=== PATIENT | female | born 1950 | race Caucasian/White ===

== ENCOUNTER → 2018-01-24 12:32 | Outpatient (CLI) | payer MEDICARE, OTHER, SELFPAY ==
--- NOTE | 2018-01-24 | DI.RAD.S_ITS ---
PROCEDURE: XR KNEE RT 3V INDICATIONS: 68 year-old female with right knee pain. TECHNIQUE: 3 views of the knee were acquired. COMPARISON: None. FINDINGS: Bones: No fractures or dislocations. There is mild medial right knee joint degeneration. No suspicious bony lesions. Soft tissues: No joint effusion. There is chondrocalcinosis. IMPRESSION: Right knee CPPD deposition disease, along with mild medial knee joint degeneration. Dictated by: Wyatt Godoy M.D. on 01/24/2018 at 13:01 Approved by: Wyatt Godoy M.D. on 01/24/2018 at 13:02
== END ==
PROVIDERS: Visit Provider Internal Medicine
DX: M17.11 Unilateral primary osteoarthritis, right knee (principal); M11.261 Other chondrocalcinosis, right knee; M25.561 Pain in right knee
CPT/HCPCS: 73562

== ENCOUNTER → 2018-07-28 06:48 | Outpatient (CLI) | payer MEDICARE, OTHER, SELFPAY ==
[2018-07-28 08:37] LABS: Alanine Aminotransferase 25 IU/L (9-52); Aspartate Aminotransferase 24 IU/L (14-36); Cholesterol 184 mg/dL (140-199); HDL Cholesterol 67 mg/dL (40-60); LDL Cholesterol Calculated 100 mg/dL (<100); Triglycerides 84 mg/dL (35-150)
== END ==
PROVIDERS: Visit Provider Internal Medicine
DX: E78.5 Hyperlipidemia, unspecified (principal)
CPT/HCPCS: 36415; 80061; 84450; 84460

== ENCOUNTER → 2018-09-09 09:13 | Outpatient (CLI) | payer MEDICARE, OTHER, SELFPAY ==
--- NOTE | 2018-09-09 | DI.MG.S_ITS ---
BILATERAL DIGITAL SCREENING MAMMOGRAM 3D/2D WITH CAD: 09/09/2018 CLINICAL: Routine screening. Comparison is made to exam dated: 04/16/2016 mammogram - [facility]. The tissue of both breasts is heterogeneously dense. This may lower the sensitivity of mammography. Current study was also evaluated with a Computer Aided Detection (CAD) system. No significant masses, calcifications, or other findings are seen in either breast. There has been no significant interval change. IMPRESSION: NEGATIVE There is no mammographic evidence of malignancy. A 1 year screening mammogram is recommended. This exam was interpreted at Station ID: [id number]. NOTE: For mammograms, a report in lay terms will be sent to the patient. Approximately 15% of breast malignancies will not be visualized mammographically. In the management of a palpable breast mass, a negative mammogram must not discourage biopsy of a clinically suspicious lesion. Electronically Signed By: Ricky jane/tresa:09/09/2018 11:25:11 letter sent: Normal Exam ACR BI-RADS Category 1: Negative [id number]
--- NOTE | 2018-09-09 | DI.RAD.S_ITS ---
This blank DEXA report has been sent in error by the PACS system. The correct and complete report will be forthcoming in 1-2 days. Thank you for your patience and understanding. Dictated by: Adam Barrios M.D. on 09/09/2018 at 10:35 Approved by: Adam Barrios M.D. on 09/09/2018 at 10:36
== END ==
PROVIDERS: PCP Internal Medicine; Visit Provider Internal Medicine
DX: Z12.31 Encounter for screening mammogram for malignant neoplasm of breast (principal); M81.0 Age-related osteoporosis without current pathological fracture; Z78.0 Asymptomatic menopausal state; Z90.722 Acquired absence of ovaries, bilateral; Z87.891 Personal history of nicotine dependence
CPT/HCPCS: 77063; 77067; 77080

== ENCOUNTER 2018-09-17 12:24 | Day surgery (SDC) | payer MEDICARE, OTHER, SELFPAY ==
[2018-09-17] VITALS (8 sets, daily range): BP systolic 100–112; BP diastolic 51–66; PULSE 66–87; RESP 11–17; TEMP 36.3–36.9; O2SAT 97–100; BMI 21.0
--- NOTE | 2018-09-17 | PATH_ITS ---
[facility] Accession Number: [id number] . 01 Material submitted: . PART A: ASCENDING POLYP PART B: RECTOSIGMOID POLYP . 02 Diagnosis: A. Ascending Colon, Polyp, Biopsy: Tubular adenoma; negative for high-grade dysplasia. . B. Rectosigmoid Colon, Polyp, Biopsy: Tubular adenoma; negative for high-grade dysplasia. [facility]/09/18/2018 . 02 Electronically signed: . Love Orellana MD, Pathologist NPI- [id number] . 01 Gross description: . Received two formalin-filled containers, both labeled with the patient's name: . A. In a container labeled descending colon polyp, the specimen consists of a 0.4 cm portion of tissue, entirely submitted in cassette A. B. In a container labeled rectosigmoid polyp, the specimen consists of a 0.2 cm portion of tissue, entirely submitted in cassette B. ([id number]) /FRR . 02 Pathologist provided ICD-10: K63.5 . 02 CPT . 540354, 910187 Performed at: 01 [facility] [address] [place] [address], [place], [place] [id number] MD Ricky Garg MD Phone: [phone] Performed at: 02 [facility] [address] [place], [place] [id number] MD Abimbola Curiel MD Phone: [phone]
--- NOTE | 2018-09-17 12:31 | P.HP_ITS ---
History of Present Illness Date Patient Seen: 09/17/18 Chief complaint: [id number] SCREENING COLONOSCOPY Narrative: 68-year-old female here for colon cancer screening. Last colonoscopy more than 10 years ago. Report is not available to me Patient History Social History household members: family Smoking Status: Former smoker Family & Social History Tobacco & Substance use: Smoking Status Former smoker Meds Home Medications Medication Instructions Recorded Confirmed Type [prolia] #0 08/09/16 08/16/18 History calcium carbonate 1 tab PO #0 08/09/16 08/16/18 History calcium carbonate 400 mg PO #0 08/09/16 08/16/18 History cholecalciferol (vitamin D3) 1 tab PO QDAY #0 08/09/16 08/16/18 History [Vitamin D3] conjugated estrogens [Premarin] 1 appful VAGINAL #0 08/09/16 08/16/18 History ibuprofen 200 mg PO PRN #0 08/09/16 08/16/18 History pravastatin 20 mg PO HS #0 08/09/16 09/17/18 History sumatriptan succinate 50 mg PO PRN PRN #0 08/09/16 08/16/18 History triamcinolone acetonide 1 walter TOPICAL #0 08/09/16 08/16/18 History valacyclovir 500 mg PO #0 08/09/16 08/16/18 History venlafaxine 75 mg PO QDAY #0 08/09/16 09/17/18 History Allergies Allergy/AdvReac Type Severity Reaction Status Date / Time amoxicillin Allergy Mild Diarrhea Verified 09/17/18 13:21 ampicillin [AMPICILLIN] Allergy Mild Diarrhea Verified 09/17/18 13:21 lovastatin [LOVASTATIN] Allergy Mild joints ache Verified 09/17/18 13:21 Exam Narrative Exam Narrative: General: Patient is well developed, not in apparent distress Cardiovascular: Regular rate and rhythm, no murmurs, rubs, or gallops; no evidence of edema; no palpable abdominal aortic aneurysm Gastrointestinal: Normoactive bowel sounds, soft, nontender, nondistended, no rebound tenderness, no hepatosplenomegaly, no evidence of hernia Assessment & Plan Plan: Assessment/Plan Narrative: 68-year-old female here for average risk colon cancer screening. Prior colonoscopy report not available Regarding the procedure(s), the risks and potential complications, benefits, and alternatives (including not doing the procedure) were discussed with the patient. The risks include but are not limited to bleeding, splenic injury, infection, perforation which may require surgical intervention, missed lesions, and adverse reactions to sedative medicines. After a question and answer period , the patient agreed to proceed with the procedure(s) and gives informed consent.
[2018-09-17] MEDS: SODIUM CHLORIDE 0.9% 1,000 ML 70 ML IV (13:42)
--- NOTE | 2018-09-17 14:02 | PM.OP.ENDO ---
Operative Date/Time/Diagnoses Date of procedure: 09/17/18 Procedure Notes Procedure in detail: Surgeon: Sameer Noel MD Procedure: Colonoscopy with polypectomy Preoperative diagnosis: Average risk colon cancer screening Postoperative diagnosis: 2 colon polyp status post polypectomy; grade 1 internal hemorrhoids Medications: Conscious sedation using 4 mg IV of Midazolam and 150 mcg IV of Fentanyl Preanesthesia Assessment An H and P was performed/updated and the Px?s ASA class is 2. The procedure was discussed in detail with the patient. The potential risks and complications including infection, bleeding, missed lesions, perforation, need for surgery in case of perforation, prolonged hospital stay, and were explained. A brief question and answer period was allotted and once all questions were answered, informed consent was obtained. The patient was brought back to the procedure room and placed on standard monitoring. The patient?s vital signs were monitored continuously throughout the entire procedure. Prior to starting, a timeout was performed to confirm the patient?s identity, allergies, medications, and procedure. Procedure in detail The patient was placed in left lateral decubitus position and once adequate sedation was obtained a CLIVE was performed. The digital rectal examination did not reveal any palpable lesions however there was note of a lax anal sphincter. The tip of the colonoscope was placed in the anal canal and advanced without difficulty all the way to the cecum which was identified by the appendiceal orifice and the ileocecal valve. Careful examination of all haque of the colon was performed with irrigation of any residual stool. In the ascending colon, there was note of a 2 mm sessile polyp which was removed by means of cold Jumbo forceps. Resection and retrieval were complete with minimal bleeding. In the rectosigmoid colon, there was note of a 3 mm sessile polyp which was removed by means of cold Jumbo forceps. Resection and retrieval were complete with minimal bleeding. Retroflexion was performed in the rectum which revealed grade 1 internal hemorrhoids. The patient tolerated the procedure well and will be brought back to the recovery area to be discharged once criteria are met. The prep was judged to be good and adequate to identify polyps less than 5 mm. The withdrawal time was 13 min. The total physician intraservice time was 20 min. Complications There were no complications and estimated blood loss was minimal. Recommendations: Resume previous diet Continue outPx medications Follow up pathology results Repeat colonoscopy in 5 or 10 years depending on pathology results An emergency contact number was given to the patient for any complications related to the procedure
[2018-09-17] MEDS: fentaNYL 250 MCG/5 ML INJ IV (14:10)
[2018-09-17] MEDS: MIDAZOLAM 5 MG/5 ML VIAL IV (14:30)
--- NOTE | 2018-09-17 14:34 | PM.DS.1 ---
History of Present Illness Chief complaint: [id number] SCREENING COLONOSCOPY Narrative: 68-year-old female here for colon cancer screening. Last colonoscopy more than 10 years ago. Report is not available to me Discharge Providers Primary care physician: Debora Morrison MD Discharge provider: Sameer Noel MD Discharge Date: 09/17/18 Exam Vital Signs (past 8 hours): - 09/17/18 13:25 09/17/18 14:31 Temperature 98.5 F 97.6 F Pulse Rate 66 87 Respiratory Rate 16 14 Blood Pressure 106/66 112/55 L Pulse Oximetry 100 98 Oxygen Delivery Method Room Air Narrative Exam Narrative: General: Patient is well developed, not in apparent distress Cardiovascular: Regular rate and rhythm, no murmurs, rubs, or gallops; no evidence of edema; no palpable abdominal aortic aneurysm Gastrointestinal: Normoactive bowel sounds, soft, nontender, nondistended, no rebound tenderness, no hepatosplenomegaly, no evidence of hernia Discharge Plan Discharge Plan Patient Disposition: Home Discharge Med Rec/Prescriptions Prescriptions: Continue pravastatin 10 MG tablet 20 mg PO HS Qty: 0 RF: 0 ibuprofen 200 MG capsule 200 mg PO PRN (Reason: Pain (Scale Score 1-3)) Qty: 0 RF: 0 calcium carbonate 500 MG tablet 1 tab PO Qty: 0 RF: 0 conjugated estrogens [Premarin] 0.625 MG/GM cream 1 appful Vaginal Qty: 0 RF: 0 [prolia] Qty: 0 RF: 0 triamcinolone acetonide 0.5 % cream 1 walter Topical Qty: 0 RF: 0 sumatriptan succinate 50 MG tablet 50 mg PO PRN PRNQty: 0 RF: 0 valacyclovir 500 MG tablet 500 mg PO Qty: 0 RF: 0 venlafaxine 75 MG tablet extended release 24hr 75 mg PO QDAY Qty: 0 RF: 0 calcium carbonate 400 MG tablet,chewable 400 mg PO Qty: 0 RF: 0 cholecalciferol (vitamin D3) [Vitamin D3] 2,000 UNIT tablet 1 tab PO QDAY Qty: 0 RF: 0 Discharge Orders: Discharge (Order); Ordered 09/17/18 Ordered By: Sameer Noel Provider Discharge Instructions Diet: Diet as Tolerated Visit Report/Discharge Packet Stand Alone Forms: Surgery Discharge Discharge Data Primary Care Provider: Debora Morrison Attending Provider: Sameer Noel
== END 2018-09-17 15:28 | disposition home or self-care (01) ==
PROVIDERS: PCP Internal Medicine; Visit Provider Internal Medicine Gastroenterology
PROC: 0DJD8ZZ Inspection of Lower Intestinal Tract, Via Natural or Artificial Opening Endoscopic (ICD-10-PCS; CPT 45378; principal; 2018-09-17 14:00)
DX: Z12.11 Encounter for screening for malignant neoplasm of colon (principal); K64.0 First degree hemorrhoids; Z87.891 Personal history of nicotine dependence; K63.5 Polyp of colon
CPT/HCPCS: 45380; 88305; J2250; J3010

== ENCOUNTER → 2019-02-10 07:02 | Outpatient (CLI) | payer MEDICARE, OTHER, SELFPAY ==
[2019-02-10 08:31] LABS: Alanine Aminotransferase 17 IU/L (9-52); Aspartate Aminotransferase 28 IU/L (14-36); Cholesterol 180 mg/dL (140-199); HDL Cholesterol 65 mg/dL (40-60); LDL Cholesterol Calculated 105 mg/dL (<100); Triglycerides 52 mg/dL (35-150)
== END ==
PROVIDERS: PCP Internal Medicine; Visit Provider Internal Medicine
DX: E78.5 Hyperlipidemia, unspecified (principal)
CPT/HCPCS: 36415; 80061; 84450; 84460

== ENCOUNTER → 2019-09-21 10:04 | Outpatient (CLI) | payer MEDICARE, OTHER, SELFPAY ==
--- NOTE | 2019-09-21 | DI.RAD.S_ITS ---
PROCEDURE: XR KNEE RT 1TO2V INDICATIONS: pain in right knee TECHNIQUE: 2 views of the knee were acquired. COMPARISON: [facility], , XR KNEE RT 3V, 01/24/2018, 12:16. FINDINGS: Bones: No fractures or dislocations. No suspicious bony lesions. Mild joint space loss most pronounced in the medial compartment and not significantly changed compared to 2018. Small posterior tibial spur. Small lateral and medial osteophytes. Soft tissues: No joint effusion. No suspicious soft tissue calcifications. Chondrocalcinosis. IMPRESSION: Mild to moderate degenerative change. Chondrocalcinosis. Dictated by: Aly Rivers M.D. on 09/21/2019 at 12:50 Approved by: Aly Rivers M.D. on 09/21/2019 at 12:52
== END ==
PROVIDERS: PCP Internal Medicine; Referring Provider Internal Medicine; Visit Provider Internal Medicine
DX: M25.561 Pain in right knee (principal); M11.261 Other chondrocalcinosis, right knee; M25.761 Osteophyte, right knee
CPT/HCPCS: 73560

== ENCOUNTER 2019-11-25 21:45 | Emergency (ER) | payer MEDICARE, OTHER, SELFPAY ==
[2019-11-25 21:56] VITALS: BP 136/78; PULSE 65; RESP 98; TEMP 36.6; O2SAT 98; BMI 21.0
--- NOTE | 2019-11-25 22:02 | ED_ITS ---
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 She was pushing a yard cart. The cart jammed, the handle swung and hit her in the head. She sustained injury to the right nondenominational. There is no visual changes, dizziness or LOC. She resumed work. She continue with her day, until several hours ago she developed bilateral blurred vision. With this she had no bleeding from the nose, mouth or ears. She has no neck pain. She has no focal weakness or numbness. She is not having headache. The blurred vision happened about 1 hour prior to arrival. Her vision has improved. She has a history of eye surgery. She is worried about her implants. There are no visual field cuts. She is not anticoagulated. Related Data Home Medications Medication Instructions Recorded Confirmed [prolia] #0 08/09/16 08/16/18 calcium carbonate 1 tab PO #0 08/09/16 08/16/18 calcium carbonate 400 mg PO #0 08/09/16 08/16/18 cholecalciferol (vitamin D3) 1 tab PO QDAY #0 08/09/16 08/16/18 [Vitamin D3] conjugated estrogens [Premarin] 1 appful VAGINAL #0 08/09/16 08/16/18 ibuprofen 200 mg PO PRN #0 08/09/16 08/16/18 pravastatin 20 mg PO HS #0 08/09/16 09/17/18 sumatriptan succinate 50 mg PO PRN PRN #0 08/09/16 08/16/18 triamcinolone acetonide 1 walter TOPICAL #0 08/09/16 08/16/18 valacyclovir 500 mg PO #0 08/09/16 08/16/18 venlafaxine 75 mg PO QDAY #0 08/09/16 09/17/18 Allergies Allergy/AdvReac Type Severity Reaction Status Date / Time amoxicillin Allergy Mild Diarrhea Verified 09/17/18 13:21 ampicillin [AMPICILLIN] Allergy Mild Diarrhea Verified 09/17/18 13:21 lovastatin [LOVASTATIN] Allergy Mild joints ache Verified 09/17/18 13:21 Review of Systems Review of Systems ROS Unobtainable: All systems reviewed & are unremarkable except as noted in HPI and below Constitutional Constitutional: Denies fever(s), Denies lethargy and Denies weakness Eyes Eyes: Denies blind spots, Reports blurry vision, Reports change in vision, Denies floaters and Denies loss of vision ENT Comments: No trauma to the ears, nose or mouth. No bleeding. Cardiovascular Cardiovascular: Denies chest pain, Denies lightheadedness, Denies palpitations, Denies dyspnea and Denies orthopnea Respiratory Respiratory: Denies dyspnea Gastrointestinal Gastrointestinal: Reports nausea Neurologic Neurologic: Denies loss of vision and Denies weakness Endocrine Endocrine: Denies palpitations Patient History Medical History (Updated 11/25/19 @ 22:21 by Chuckie Templeton MD) Hyperlipidemia (Acute) Migraines (Acute) Surgical History (Updated 11/25/19 @ 22:19 by Chuckie Templeton MD) History of cataract surgery (Acute) Social History household members: family Smoking Status: Former smoker Smoking Status: Former smoker alcohol intake frequency: holidays/special occasions only Substance Use Type: does not use Exam Initial Vital Signs Initial Vital Signs: Vital Signs Temperature 97.8 F 11/25/19 21:56 Pulse Rate 65 11/25/19 21:56 Respiratory Rate 98 H 11/25/19 21:56 Blood Pressure 136/78 11/25/19 21:56 Pulse Oximetry 98 11/25/19 21:56 Const General: cooperative and well developed Nutritional Appearance: well nourished [facility] Head: normocephalic and atraumatic Ears: external ears normal and TM's normal bilaterally Nose: external nose normal and No nasal discharge Face and sinus: sinuses nontender, face symmetric, no sinus tenderness and No dry mucous membranes Mouth: oral mucosae normal and moist mucous membranes Teeth and gingiva: dentition normal Throat: tonsils normal and uvula midline Eyes General: appearance normal, both eyes and all related structures Eyelids: eyelids normal Conjunctivae: conjunctivae normal Sclera: sclerae normal Pupils: PERRL EOM: EOM intact bilaterally Other: Visual cues intact, see nursing notes. No visual field cuts. Neck Neck: full ROM, supple and No tender Course Orders Ordered: ED Orders 11/25/19 22:10 CT head/brain wo con Stat Vital Signs Vital signs: Vital Signs - 8 hr 11/25/19 21:56 11/25/19 23:32 Temperature 97.8 F Pulse Rate 65 54 L Respiratory Rate 98 H 15 Blood Pressure 136/78 Blood Pressure [Left Arm] 105/51 L Pulse Oximetry 98 97 MDM - Eye Problem Imaging Data CT scan - head: Radiologist's Impression: No intracranial abnormalities. Discharge Plan Departure Patient Disposition: Home Clinical Impression: Mild concussion Qualifiers: Encounter type: initial encounter Loss of consciousness presence/duration: without LOC Qualified Code(s): S06.0X0A - Concussion without loss of consciousness, initial encounter Instructions: Concussion Activity Restrictions/Additional Instructions: Rest at home. Contact your buckshot swage operator for phone consultation or follow-up visit. Return the ER as necessary. Prescriptions: No Action pravastatin 10 MG tablet 20 mg PO HS Qty: 0 RF: 0 ibuprofen 200 MG capsule 200 mg PO PRN (Reason: Pain (Scale Score 1-3)) Qty: 0 RF: 0 calcium carbonate 500 MG tablet 1 tab PO Qty: 0 RF: 0 conjugated estrogens [Premarin] 0.625 MG/GM cream 1 appful Vaginal Qty: 0 RF: 0 [prolia] Qty: 0 RF: 0 triamcinolone acetonide 0.5 % cream 1 walter Topical Qty: 0 RF: 0 sumatriptan succinate 50 MG tablet 50 mg PO PRN PRNQty: 0 RF: 0 valacyclovir 500 MG tablet 500 mg PO Qty: 0 RF: 0 venlafaxine 75 MG tablet extended release 24hr 75 mg PO QDAY Qty: 0 RF: 0 calcium carbonate 400 MG tablet,chewable 400 mg PO Qty: 0 RF: 0 cholecalciferol (vitamin D3) [Vitamin D3] 2,000 UNIT tablet 1 tab PO QDAY Qty: 0 RF: 0 Referrals: Debora Morrison MD [Primary Care Provider] -
--- NOTE | 2019-11-25 22:10 | DI.CT.S_ITS ---
PROCEDURE: CT HEAD/BRAIN WO CON INDICATIONS: Right yazidi injury, blurred vision TECHNIQUE: Noncontrast 4.5 mm thick angled axial sections acquired from the foramen magnum to the vertex, with coronal and sagittal reformats. For radiation dose reduction, the following was used: automated exposure control, adjustment of mA and/or kV according to patient size. COMPARISON: None. FINDINGS: Image quality: Excellent. CSF spaces: Basal cisterns are patent. No extra-axial fluid collections. Ventricles are normal in size and shape. Brain: No midline shift. No intracranial masses or hemorrhage. Zelaya-white matter interface is normal. Skull and face: Calvarium and visualized facial bones are intact, without suspicious lesions. Sinuses: Visualized sinuses and mastoids are clear. IMPRESSION: No acute intracranial abnormalities. No significant discrepancy with the night shift manager radiology preliminary report. Dictated by: Adam Barrios M.D. on 11/26/2019 at 8:01 Approved by: Adam Barrios M.D. on 11/26/2019 at 8:02
--- NOTE | 2019-11-25 22:32 | PC.NURSE ---
PT reports hit right scientologist at 1430 with wheel [place] while gardening, states at 2000 both eyes c blurry with, left eye has cleared but left eye continues to be blurry.Today patient in garden, accidentally hit right scientologist with wheel [place] at 1430, states at 1999 both eyes went blurry with, left eye has cleared but left eye continues to be blurry.
--- NOTE | 2019-11-25 22:35 | PC.NURSE ---
PT reports hit right mu-ism at 1430 with wheel [place] while gardening, states at 2000 both eyes becoming blurry. Denies headache or N/V. Not on blood thinners.
[2019-11-25 23:32] VITALS: BP 105/51; PULSE 54; RESP 15; O2SAT 97
== END 2019-11-26 00:05 | disposition home or self-care (01) ==
PROVIDERS: Emergency Provider Emergency Medicine; PCP Internal Medicine
DX: S06.0X0A Concussion without loss of consciousness, initial encounter (principal); W22.8XXA Striking against or struck by other objects, initial encounter
CPT/HCPCS: 70450; 99283; 99284

== ENCOUNTER → 2020-03-08 14:46 | Outpatient (ROUT) | payer MEDICARE, OTHER, SELFPAY ==
[2020-03-08 15:21] LABS: Cholesterol 213 mg/dL (140-199); HDL Cholesterol 54 mg/dL (40-60); LDL Cholesterol Calculated 139 mg/dL (<100); Triglycerides 99 mg/dL (35-150)
== END ==
PROVIDERS: PCP Internal Medicine; Visit Provider Internal Medicine
DX: E78.5 Hyperlipidemia, unspecified (principal)
CPT/HCPCS: 80061

== ENCOUNTER → 2020-04-18 15:27 | Outpatient (CLI) | payer MEDICARE, OTHER, SELFPAY ==
--- NOTE | 2020-04-18 | DI.MRI.S_ITS ---
PROCEDURE: MR KNEE RT WO CON INDICATIONS: Unspecified internal derangement of right knee TECHNIQUE: Noncontrast sagittal PD fast spin echo and T2 fast spin echo with fat saturation, sagittal 3-D FLASH with fat saturation; coronal T1 spin echo and PD fast spin echo with fat saturation, and axial PD fast spin echo with fat saturation through the knee. COMPARISON: None. FINDINGS: Image quality: Excellent. Menisci: There is an oblique tear involving posterior horn of medial meniscus extending to the inferior articulating surface. There is no focal lateral meniscal tear. The meniscal root ligaments appear intact. Cruciate ligaments: The anterior and posterior cruciate ligaments appear intact. Medial structures: Low-grade sprain/partial-thickness tear involving medial collateral ligament is seen.. The posterior oblique ligament, semimembranosus tendon insertions, oblique popliteal ligament, and meniscocapsular junction appear intact. Visualized portions of the pes anserinus tendons appear normal. No abnormal bursal fluid. Lateral structures: The lateral collateral ligament, long and short heads of the biceps femoris tendon appear intact. The popliteus tendon appears normal; the popliteofibular ligament appears intact. The posterosuperior and anteroinferior popliteomeniscal fascicles appear intact. The arcuate and fabellofibular ligaments appear intact, on either side of the lateral inferior geniculate artery. Iliotibial band appears normal. Anterior structures: The quadriceps and patellar tendons appear intact. Patellar alignment is normal. No femoral trochlear dysplasia or ventral trochlear prominence. No edema in the infrapatellar fat pad. Bones and cartilage: No bone marrow contusions or fractures. Mild tricompartmental osteoarthritis and low-grade chondromalacia more prominent in medial femoral tibial compartment is seen.. Joint space: There is small knee joint fluid. No Jensen's cyst. Normal appearing synovial plicae are incidentally noted. IMPRESSION: 1. Oblique tear involving posterior horn of medial meniscus extending to inferior articulating surface. No evidence of focal lateral meniscal tear. 2. Cruciate ligaments are intact. Low-grade MCL sprain/partial-thickness tear. 3. 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 No fracture or dislocation. Small amount of joint fluid. Dictated by: Mario Harris M.D. on 04/18/2020 at 16:35 Approved by: Mario Harris M.D. on 04/18/2020 at 16:37
== END ==
PROVIDERS: PCP Internal Medicine; Referring Provider Internal Medicine; Visit Provider Orthopaedic Surgery
DX: S83.241A Other tear of medial meniscus, current injury, right knee, initial encounter (principal); S83.411A Sprain of medial collateral ligament of right knee, initial encounter; M17.11 Unilateral primary osteoarthritis, right knee; M94.261 Chondromalacia, right knee
CPT/HCPCS: 73721

== ENCOUNTER 2020-08-07 08:52 | Emergency (ER) | payer MEDICARE, OTHER, SELFPAY ==
[2020-08-07 09:06] VITALS: BP 137/65; PULSE 62; RESP 14; TEMP 36.9; O2SAT 97
--- NOTE | 2020-08-07 09:15 | ED.HEATRA ---
HPI - Head Injury General Chief complaint: Head Injury Stated complaint: branch hit head yesterday afternoon, blurry vision Time Seen by Provider: 08/07/20 09:02 Source: patient Mode of arrival: Ambulatory Limitations: no limitations History of Present Illness HPI Narrative: Patient is a 70-year-old female presents with blurry vision. She was hit in the head yesterday morning around 11:00 a.m. a branch in the center of her forehead. She did not lose consciousness she is not on any anti-platelet or anti medication medication. She was not nauseated vomiting or dizzy yesterday she does not even have a headache. This morning she woke up and was looking at her computer screen with her reading glasses on when she realized she had blurry vision. It lasted for about 45 minutes was both sides and has resolved since she got to the ER. She denies any weakness numbness or tingling. She has no chest pain. She denies any photosensitivity or eye irritation no eye discharge. MD Complaint: head injury Place: home Loss of Consciousness: no Location of injury: frontal Related Data Home Medications Medication Instructions Recorded Confirmed [prolia] #0 08/09/16 08/16/18 calcium carbonate 1 tab PO #0 08/09/16 08/16/18 calcium carbonate 400 mg PO #0 08/09/16 08/16/18 cholecalciferol (vitamin D3) 1 tab PO QDAY #0 08/09/16 08/16/18 [Vitamin D3] conjugated estrogens [Premarin] 1 appful VAGINAL #0 08/09/16 08/16/18 ibuprofen 200 mg PO PRN #0 08/09/16 08/16/18 pravastatin 20 mg PO HS #0 08/09/16 09/17/18 sumatriptan succinate 50 mg PO PRN PRN #0 08/09/16 08/16/18 triamcinolone acetonide 1 walter TOPICAL #0 08/09/16 08/16/18 valacyclovir 500 mg PO #0 08/09/16 08/16/18 venlafaxine 75 mg PO QDAY #0 08/09/16 09/17/18 Allergies Allergy/AdvReac Type Severity Reaction Status Date / Time amoxicillin Allergy Mild Diarrhea Verified 08/07/20 09:10 ampicillin [AMPICILLIN] Allergy Mild Diarrhea Verified 08/07/20 09:10 lovastatin [LOVASTATIN] Allergy Mild joints ache Verified 08/07/20 09:10 Review of Systems Review of Systems Narrative: GENERAL: Denies chills, fatigue, malaise, fever, sweats, travel HEENT: Denies sinus pain, ear pain, sore throat, difficulty swallowing, neck pain RESPIRATORY: Denies dyspnea, cough, wheezing, hemoptysis, sputum. CARDIOVASCULAR: Denies chest pain, palpitations, orthopnea, edema GASTROINTESTINAL: Denies nausea, vomiting, abdominal pain, diarrhea, constipation, melena. : Denies dysuria, frequency, incontinence, hematuria, urinary retention, flank pain. MUSCULOSKELETAL: Denies weakness, joint pain, or bony pain SKIN: No rash, no erythema, no pruritus NEUROLOGIC: Denies weakness, dizziness, headache, numbness, change in speech, confusion PSYCHIATRIC: No concerning psychosocial issues. 12 point review of systems is negative except for those stated above and HPI Eyes Eyes: Reports blurry vision, Denies exophthalmos, Denies change in vision, Denies diplopia, Denies eye discharge, Denies dry eyes, Denies floaters, Denies irritation, Denies itchy eyes, Denies loss of peripheral vision, Denies loss of vision, Denies seeing flashes and Denies photophobia Neurologic Neurologic: Denies loss of vision Allergic/Immunologic Allergic/Immunologic: Denies itchy eyes Patient History Medical History Hyperlipidemia Migraines Surgical History History of cataract surgery Social History household members: family Smoking Status: Former smoker Smoking Status: Former smoker alcohol intake frequency: holidays/special occasions only Substance Use Type: does not use Exam Initial Vital Signs Initial Vital Signs: Vital Signs Temperature 98.4 F 08/07/20 09:06 Pulse Rate 62 08/07/20 09:06 Respiratory Rate 14 08/07/20 09:06 Blood Pressure 137/65 08/07/20 09:06 Pulse Oximetry 97 08/07/20 09:06 GENERAL: Well-appearing, well-nourished and in no acute distress. HEENT: Head small abrasion center of forehead just superior the nose between the eyes no depressions crepitations,EOMI, pupils reactive, no injected conjunctiva face symmetric, moist mucous membranes CARDIOVASCULAR: Regular rate and rhythm without murmurs, rubs or gallops. RESPIRATORY: Breath sounds equal bilaterally, no wheezes rales or rhonchi. ABDOMEN: Soft, nontender. Normoactive bowel sounds all 4 quadrants. No guarding or rebound. EXTREMITIES: Normal range of motion, no clubbing or edema. Neurovascularly intact NEUROLOGICAL: Alert and oriented x4.Normal gait and speech. Cranial nerves II through XII grossly intact. Good [id number], good [id number], strength equal bilaterally, no dysarthria or aphasia, sensation in tact to soft touch bilaterally, no visual changes, no facial droop SKIN: Warm, dry, no laceration, no petechiae, no rashes or lesions. Scores NIH Stroke Scale Level of Conciousness: Alert, keenly responsive Ask month/age: Answers both questions correctly. Open/close eyes, close hand: Performs both tasks correctly Best gaze horizontal: Normal Visual chaudhary: No visual loss Facial palsy: Normal symetrical movement Left arm drift: No drift for full 10 sec Right arm drift: No drift for full 10 sec Left leg drift: No drift for full 5 sec Right leg drift: No drift for full 5 sec Limb ataxia: Absent Sensory on face/arms/legs: Normal, no sensory loss Best language: No aphasia, normal Dysarthria: Normal Extinction or inattention: No abnormality Total NIH Stroke scale score: 0 Course Vital Signs Vital signs: Vital Signs - 8 hr 20/20 09:06 Temperature 98.4 F Pulse Rate 62 Respiratory Rate 14 Blood Pressure 137/65 Pulse Oximetry 97 MDM - Head Injury MDM Narrative Medical decision making narrative: At this time she has no signs or symptoms of stroke. She had some visual changes colic and a computer screen with reading glasses on which have now resolved. She has no sign or symptom of severe head injury, no risk factors. At the time I see no indication for head imaging or further workup Discharge Plan Departure Patient Disposition: Home Clinical Impression: Blurred vision, bilateral Instructions: Coping With Low Vision Activity Restrictions/Additional Instructions: *You have been diagnosed with blurry vision now resolved *What to do: At this time I do not see need for head imaging. If no signs or symptoms of stroke or severe head injury. *Continue to take medications as directed *Follow up with your primary care provider in 2-3 days *Return to ER if you should have worsening blurry vision, weakness numbness tingling persistent vomiting headache or any new, worsening or concerning symptoms Prescriptions: No Action pravastatin 10 MG tablet 20 mg PO HS Qty: 0 RF: 0 ibuprofen 200 MG capsule 200 mg PO PRN (Reason: Pain (Scale Score 1-3)) Qty: 0 RF: 0 calcium carbonate 500 MG tablet 1 tab PO Qty: 0 RF: 0 conjugated estrogens [Premarin] 0.625 MG/GM cream 1 appful Vaginal Qty: 0 RF: 0 [prolia] Qty: 0 RF: 0 triamcinolone acetonide 0.5 % cream 1 walter Topical Qty: 0 RF: 0 sumatriptan succinate 50 MG tablet 50 mg PO PRN PRNQty: 0 RF: 0 valacyclovir 500 MG tablet 500 mg PO Qty: 0 RF: 0 venlafaxine 75 MG tablet extended release 24hr 75 mg PO QDAY Qty: 0 RF: 0 calcium carbonate 400 MG tablet,chewable 400 mg PO Qty: 0 RF: 0 cholecalciferol (vitamin D3) [Vitamin D3] 2,000 UNIT tablet 1 tab PO QDAY Qty: 0 RF: 0 Referrals: Debora Morrison MD [Primary Care Provider] -
== END 2020-08-07 09:35 | disposition home or self-care (01) ==
PROVIDERS: Emergency Provider Emergency Medicine; PCP Internal Medicine
DX: H53.8 Other visual disturbances (principal); S09.90XA Unspecified injury of head, initial encounter; W22.8XXA Striking against or struck by other objects, initial encounter
CPT/HCPCS: 99281

== ENCOUNTER → 2021-01-13 18:45 | Outpatient (ROUT) | payer MEDICARE, OTHER, SELFPAY ==
[2021-01-13 19:16] LABS: Alanine Aminotransferase 13 IU/L (<35); Albumin 4.2 g/dL (3.5-5.0); Albumin Globulin Ratio 1.5 (1.0-2.8); Alkaline Phosphatase 66 U/L (38-126); Aspartate Aminotransferase 27 IU/L (14-36); BUN Creatinine Ratio 26.3 (6-22); Bilirubin Total 0.2 mg/dL (0.2-1.3); Blood Urea Nitrogen 15 mg/dL (7-17); Calcium 9.1 mg/dL (8.4-10.2); Carbon Dioxide 30 mmol/L (22-32); Chloride 103 mmol/L (98-107); Estimated Glomerular Filt Rate > 60.0 mL/min (>60); Globulin 2.8 g/dL (1.7-4.1); Glucose 80 mg/dL (80-110); HEMOLYSIS < 15 (0-50); Potassium 4.3 mmol/L (3.4-5.1); Sodium 138 mmol/L (137-145)
[2021-01-13 19:30] LABS: Vitamin D 25 Hydroxy (D3) 62.4 ng/mL (30.0-100.0)
== END ==
PROVIDERS: PCP Internal Medicine; Visit Provider Internal Medicine
DX: M81.0 Age-related osteoporosis without current pathological fracture (principal)
CPT/HCPCS: 80053; 82306

== ENCOUNTER → 2021-02-23 15:05 | Outpatient (CLI) | payer MEDICARE, OTHER, SELFPAY ==
--- NOTE | 2021-02-23 15:07 | DI.MG.S_ITS ---
BILATERAL DIGITAL SCREENING MAMMOGRAM 3D/2D WITH CAD: 02/23/2021 CLINICAL: Routine screening. Comparison is made to exams dated: 09/09/2018 mammogram - [facility] and 04/16/2016 mammogram - [facility]. The tissue of both breasts is heterogeneously dense. This may lower the sensitivity of mammography. Current study was also evaluated with a Computer Aided Detection (CAD) system. There are stable post operative findings/scarring from reduction mammoplasty in both breasts. No significant masses, calcifications, or other findings are seen in either breast. There has been no significant interval change. IMPRESSION: BENIGN There is no mammographic evidence of malignancy. A 1 year screening mammogram is recommended. This exam was interpreted at Station ID: [id number]. NOTE: For mammograms, a report in lay terms will be sent to the patient. Approximately 15% of breast malignancies will not be visualized mammographically. In the management of a palpable breast mass, a negative mammogram must not discourage biopsy of a clinically suspicious lesion. Electronically Signed By: Baljit Olivares M.D. at/:02/23/2021 16:30:25 letter sent: Normal Exam ACR BI-RADS Category 2: Benign Finding(s) 3342F
== END ==
PROVIDERS: PCP Internal Medicine; Referring Provider Internal Medicine; Visit Provider Internal Medicine
DX: Z12.31 Encounter for screening mammogram for malignant neoplasm of breast (principal); M81.0 Age-related osteoporosis without current pathological fracture; Z78.0 Asymptomatic menopausal state; Z90.722 Acquired absence of ovaries, bilateral; Z87.891 Personal history of nicotine dependence
CPT/HCPCS: 77063; 77067; 77080

== ENCOUNTER 2021-04-19 08:30 | Emergency (ER) | payer MEDICARE, OTHER, SELFPAY ==
[2021-04-19 08:43] VITALS: BP 126/59; PULSE 64; RESP 16; TEMP 36.3; O2SAT 99; BMI 21.4
--- NOTE | 2021-04-19 08:44 | ED.TRAUMA ---
HPI - Trauma General Chief Complaint: Chest Pain Stated Complaint: Left arm intermit pain/rt upper chest pain x3 days Time Seen by Provider: 04/19/21 08:43 Source: patient Mode of arrival: Ambulatory Limitations: no limitations History of Present Illness HPI narrative: This is a 71-year-old female comes emergency department complaint of left upper chest and axilla pain for the past 3 days. Patient states slowly increased in intensity. It has been intermittent with no exacerbating or alleviating factors. It does not seem to radiate anywhere. Patient notes that it just sort of hurts in that area. No lumps, bumps or bruises, no rashes or skin changes in that area. It will last seconds at a time and the longest episodes are minute at length the most. She has had some increased frequency of episodes. She denies shortness of breath, diaphoresis, no nausea or vomiting. No numbness, tingling or weakness. No swelling of her extremities. She has occasional rashes on her arms and abdomen after gardening. Patient notes that she had a little bit of right forearm discomfort as well. And last night she noted she felt dizzy for a couple minutes while lying in bed which shortly resolved. Patient has not had any additional episodes. Patient does states she gardens frequently she is unsure if she was more active if this may have caused her symptoms. She takes an antidepressant which is Lexapro, she has recently started on Ezetimibe she did not tolerate regular statin for dyslipidemia. She takes calcium and vitamin day daily. History cataracts, hysterectomy, breast reduction and bunionectomy. Patient denies any cardiac, pulmonary or embolic family history. She quit smoking tobacco in 1990, rare alcohol and no illicit. Her primary care is Debora Morrison. Related Data Home Medications Medication Instructions Recorded Confirmed [prolia] #0 08/09/16 08/16/18 calcium carbonate 400 mg calcium 400 mg PO #0 08/09/16 08/16/18 (1,000 mg) chewable tablet calcium carbonate 500 mg calcium 1 tab PO #0 08/09/16 08/16/18 (1,250 mg) tablet cholecalciferol (vitamin D3) 50 1 tab PO QDAY #0 08/09/16 08/16/18 mcg (2,000 unit) tablet (Vitamin D3) conjugated estrogens 0.625 mg/gram 1 appful VAGINAL #0 08/09/16 08/16/18 vaginal cream (Premarin) ibuprofen 200 mg capsule 200 mg PO PRN #0 08/09/16 08/16/18 pravastatin 10 mg tablet 20 mg PO HS #0 08/09/16 09/17/18 sumatriptan succinate 50 mg tablet 50 mg PO PRN PRN #0 08/09/16 08/16/18 triamcinolone acetonide 0.5 % 1 walter TOPICAL #0 08/09/16 08/16/18 topical cream valacyclovir 500 mg tablet 500 mg PO #0 08/09/16 08/16/18 venlafaxine 75 mg tablet,extended 75 mg PO QDAY #0 08/09/16 09/17/18 release 24 hr Allergies Allergy/AdvReac Type Severity Reaction Status Date / Time amoxicillin Allergy Mild Diarrhea Verified 08/07/20 09:10 ampicillin [AMPICILLIN] Allergy Mild Diarrhea Verified 08/07/20 09:10 lovastatin [LOVASTATIN] Allergy Mild joints ache Verified 08/07/20 09:10 Review of Systems Review of Systems ROS Unobtainable: All systems reviewed & are unremarkable except as noted in HPI and below Patient History Medical History Hyperlipidemia Migraines Surgical History History of cataract surgery Social History household members: family Smoking Status: Former smoker Smoking Status: Former smoker alcohol intake frequency: holidays/special occasions only Substance Use Type: does not use Exam Narrative Exam Narrative: GENERAL: Alert and oriented x three, female in mild distress. HEENT: Head normocephalic, atraumatic, EOMI, pupils reactive, face symmetric, moist mucous membranes NECK: Supple, full range of motion CARDIOVASCULAR: Regular rate and rhythm without murmurs, rubs or gallops. Patient has a mild tenderness with palpation of the left upper chest and into the axilla. No axillary lymphadenopathy is appreciated. No nodules, lumps or skin changes are appreciated. RESPIRATORY: Breath sounds equal bilaterally, no wheezes rales or rhonchi. No tachypnea accessory muscle use. Speaks in full sentences. ABDOMEN: Soft, nontender. Normoactive bowel sounds all 4 quadrants. No guarding or rebound, rigidity, no mass : No CVA tenderness EXTREMITIES: Normal range of motion, no clubbing or edema. 2+ pulses bilateral upper extremities. Neurovascularly intact. 5/5 muscle strength in bilateral upper extremities. NEUROLOGICAL: Cranial nerves II through XII grossly intact. Moving all extremities SKIN: Warm, dry, no petechiae, no rashes or lesions. Initial Vital Signs Initial Vital Signs: Vital Signs Temperature 97.4 F L 04/19/21 08:43 Pulse Rate 64 04/19/21 08:43 Respiratory Rate 16 04/19/21 08:43 Blood Pressure 126/59 L 04/19/21 08:43 Pulse Oximetry 99 04/19/21 08:43 Scores HEART Score Heart Score history: Slightly Suspicious Heart Score EKG: Normal Heart Score Age: > or = 65 years old Heart Score risk factors: 1-2 risk factors Heart Score troponin: < or = to normal limit Heart Score Total: 3 Course Orders Ordered: Discontinued Medications Aspirin (Aspirin 81 Mg Chew Tab) 324 mg PO NOW ONE Stop: 04/19/21 08:58 Last Admin: 04/19/21 09:10 Dose: 324 mg Documented by: HARJIT Vital Signs Vital signs: Vital Signs - 8 hr 04/19/21 08:43 Temperature 97.4 F L Pulse Rate 64 Respiratory Rate 16 Blood Pressure 126/59 L Pulse Oximetry 99 MDM - Trauma Lab Data Result diagrams: 04/19/21 09:20 04/19/21 09:20 Labs: Lab Results 04/19/21 04/19/21 Range/Units 09:20 09:20 WBC 5.5 (4.5-11.0) X10^3/uL RBC 4.75 (4.0-5.2) X10^6/uL Hgb 13.9 (12.0-16.0) g/dL Hct 41.5 (36-46) % MCV 87.5 (80-100) fL MCH 29.3 (26-34) PG MCHC 33.5 (30-36) % RDW 13.8 (11.6-14.8) % Plt Count 147 L (150-400) X10^3/uL Neut % (Auto) 42.9 L (50-75) % Lymph % (Auto) 43.9 H (25-40) % [place] % (Auto) 9.4 (3-14) % Eos % (Auto) 2.6 (2-4) % Baso % (Auto) 1.2 (0-2) % Neut # (Auto) 2400 (2796-6981) /uL Lymph # (Auto) 2400 (9790-8819) /uL [place] # (Auto) 500 (0-900) /uL Eos # (Auto) 100 (0-450) /uL Baso # (Auto) 100 (0-100) /uL Sodium 137 (137-145) mmol/L Potassium 4.1 (3.4-5.1) mmol/L Chloride 105 (98-107) mmol/L Carbon Dioxide 27 (22-32) mmol/L BUN 15 (7-17) mg/dL Creatinine 0.53 (0.52-1.04) mg/dL Estimated GFR > 60.0 (>60) mL/min BUN/Creatinine Ratio 28.3 H (6-22) Glucose 92 (80-110) mg/dL Calcium 9.5 (8.4-10.2) mg/dL Total Bilirubin 0.6 (0.2-1.3) mg/dL AST 30 (14-36) IU/L ALT 18 (<35) IU/L Alkaline Phosphatase 65 (38-126) U/L Total Creatine Kinase 72 (30-135) U/L CK-MB (CK-2) TNP CK-MB (CK-2) Rel Index TNP Troponin I < 0.012 (0.01-0.034) ng/mL Total Protein 7.2 (6.3-8.2) g/dL Albumin 4.4 (3.5-5.0) g/dL Globulin 2.8 (1.7-4.1) g/dL Albumin/Globulin Ratio 1.6 (1.0-2.8) Lipase 298 (23-300) U/L Imaging Data Chest x-ray: Radiologist's Impression: Launch?[address] [address] XRay Report Signed Patient: Sophia Dixon MR#: [id number] : 1950 Acct:[id number] Age/Sex: 71 / F Date of Service: 04/19/21 Loc: ED Accession Number: [id number] ?? Procedure: XR chest 1V Ordering Provider: Veda Lewis D.O. PROCEDURE:? XR CHEST 1V ? INDICATIONS:? chest pain ? TECHNIQUE:? One view of the chest was acquired.? ? COMPARISON:? None. ? FINDINGS:? ? Surgical changes and devices:? None.? ? Lungs and pleura:? Lungs are clear.? No pleural effusions or pneumothorax.? ? Mediastinum:? Mediastinal contours appear normal.? Heart size is normal.? ? Bones and chest wall:? No suspicious bony lesions.? Overlying soft tissues appear unremarkable.? Mild deformity of the posterior right 7th rib is most likely related to a prior healed fracture. ? IMPRESSION:? No acute cardiopulmonary abnormality. ? ? Dictated by: Eduardo Baltazar M.D. on 04/19/2021 at 9:18 ? ? Approved by: Eduardo Baltazar M.D. on 04/19/2021 at 9:20? ECG Data Attestation: I personally reviewed and interpreted this ECG as follows: Prior ECG tracings: not available for review Interpretation: Sinus bradycardia rate of 50 9p are 144 QRS a 68 QTC 409. No acute ST changes appreciated. No priors for comparison. MDM Narrative Medical decision making narrative: Female comes in with left-sided chest pain which is intermittent. My suspicion for ACS or cardiac causes lower. Patient's chest x-ray EKG and labs show decreased platelets but otherwise normal. Discussed with patient plan for watchful waiting. Patient can continue her home medications. She is asked to follow up with her primary care physician and we did discuss strict return precautions. Patient is aware of her decreased platelets at 147 an asked to share with her physician. Her lab value was written on her discharge paperwork. Discharge Plan Departure Patient Disposition: Home Clinical Impression: Atypical chest pain Instructions: DI for Atypical Chest Pain Activity Restrictions/Additional Instructions: Follow-up with your physician for recheck in the next week. You may try Tylenol and/or ibuprofen for pain as needed. Please return for new or worsening symptoms, increasing chest pain, shortness of breath, numbness, tingling or weakness, rashes or skin changes, lightheadedness or passing out, persistent vomiting or other new or concerning symptoms. Prescriptions: No Action pravastatin 10 MG tablet 20 mg PO HS Qty: 0 RF: 0 ibuprofen 200 MG capsule 200 mg PO PRN (Reason: Pain (Scale Score 1-3)) Qty: 0 RF: 0 calcium carbonate 500 MG tablet 1 tab PO Qty: 0 RF: 0 conjugated estrogens [Premarin] 0.625 MG/GM cream 1 appful Vaginal Qty: 0 RF: 0 [prolia] Qty: 0 RF: 0 triamcinolone acetonide 0.5 % cream 1 walter Topical Qty: 0 RF: 0 sumatriptan succinate 50 MG tablet 50 mg PO PRN PRNQty: 0 RF: 0 valacyclovir 500 MG tablet 500 mg PO Qty: 0 RF: 0 venlafaxine 75 MG tablet extended release 24hr 75 mg PO QDAY Qty: 0 RF: 0 calcium carbonate 400 MG tablet,chewable 400 mg PO Qty: 0 RF: 0 cholecalciferol (vitamin D3) [Vitamin D3] 2,000 UNIT tablet 1 tab PO QDAY Qty: 0 RF: 0 Referrals: Debora Morrison MD [Primary Care Provider] -
--- NOTE | 2021-04-19 08:57 | DI.RAD.S_ITS ---
PROCEDURE: XR CHEST 1V INDICATIONS: chest pain TECHNIQUE: One view of the chest was acquired. COMPARISON: None. FINDINGS: Surgical changes and devices: None. Lungs and pleura: Lungs are clear. No pleural effusions or pneumothorax. Mediastinum: Mediastinal contours appear normal. Heart size is normal. Bones and chest wall: No suspicious bony lesions. Overlying soft tissues appear unremarkable. Mild deformity of the posterior right 7th rib is most likely related to a prior healed fracture. IMPRESSION: No acute cardiopulmonary abnormality. Dictated by: Eduardo Baltazar M.D. on 04/19/2021 at 9:18 Approved by: Eduardo Baltazar M.D. on 04/19/2021 at 9:20
[2021-04-19] MEDS: ASPIRIN 81 MG CHEW TAB 324 MG PO (09:10)
[2021-04-19 09:15] VITALS: PULSE 61; RESP 13; O2SAT 98
[2021-04-19 09:16] VITALS: BP 121/64; PULSE 60; RESP 18; O2SAT 98
[2021-04-19 09:27] LABS: Add Manual Diff / Slide Review NO; Basophils Absolute Auto 100 /uL (0-100); Basophils Percent Auto 1.2 % (0-2); Eosinophils Absolute Auto 100 /uL (0-450); Eosinophils Percent Auto 2.6 % (2-4); Hematocrit 41.5 % (36-46); Hemoglobin 13.9 g/dL (12.0-16.0); Lymphocytes Absolute Auto 2400 /uL (1100-4500); Lymphocytes Percent Auto 43.9 % (25-40); Mean Corpuscular HGB Conc 33.5 % (30-36); Mean Corpuscular Hemoglobin 29.3 PG (26-34); Mean Corpuscular Volume 87.5 fL (80-100); Monocytes Absolute Auto 500 /uL (0-900); Monocytes Percent Auto 9.4 % (3-14); Neutrophils Absolute Auto 2400 /uL (1500-7000); Neutrophils Percent Auto 42.9 % (50-75); Platelet Count 147 X10^3/uL (150-400); Red Blood Cell Count 4.75 X10^6/uL (4.0-5.2); Red Cell Distribution Width 13.8 % (11.6-14.8); White Blood Cell Count 5.5 X10^3/uL (4.5-11.0)
[2021-04-19 09:30] VITALS: BP 128/70; PULSE 58; RESP 19; O2SAT 99
[2021-04-19 09:39] LABS: Alanine Aminotransferase 18 IU/L (<35); Albumin 4.4 g/dL (3.5-5.0); Albumin Globulin Ratio 1.6 (1.0-2.8); Alkaline Phosphatase 65 U/L (38-126); Aspartate Aminotransferase 30 IU/L (14-36); BUN Creatinine Ratio 28.3 (6-22); Bilirubin Total 0.6 mg/dL (0.2-1.3); Blood Urea Nitrogen 15 mg/dL (7-17); Calcium 9.5 mg/dL (8.4-10.2); Carbon Dioxide 27 mmol/L (22-32); Chloride 105 mmol/L (98-107); Creatine Kinase 72 U/L (30-135); Estimated Glomerular Filt Rate > 60.0 mL/min (>60); Globulin 2.8 g/dL (1.7-4.1); Glucose 92 mg/dL (80-110); HEMOLYSIS < 15 (0-50); Lipase 298 U/L (23-300); Potassium 4.1 mmol/L (3.4-5.1); Sodium 137 mmol/L (137-145); Total Protein 7.2 g/dL (6.3-8.2)
[2021-04-19 09:50] LABS: Troponin I < 0.012 ng/mL (0.01-0.034)
[2021-04-19 10:00] VITALS: BP 135/66; PULSE 57; RESP 16; O2SAT 97
== END 2021-04-19 10:33 | disposition home or self-care (01) ==
PROVIDERS: Emergency Provider Emergency Medicine; PCP Internal Medicine
DX: R07.89 Other chest pain (principal)
CPT/HCPCS: 36415; 71045; 80053; 82550; 83690; 84484; 85025; 93005; 99284

== ENCOUNTER → 2022-08-21 14:39 | Outpatient (CLI) | payer MEDICARE, OTHER, SELFPAY | PROVIDERS: PCP Internal Medicine; Referring Provider Internal Medicine; Visit Provider Internal Medicine | DX: M81.0 Age-related osteoporosis without current pathological fracture (principal); Z79.83 Long term (current) use of bisphosphonates; Z90.710 Acquired absence of both cervix and uterus | CPT/HCPCS: 77080 ==

== ENCOUNTER → 2022-09-18 16:55 | Outpatient (CLI) | payer MEDICARE, OTHER, SELFPAY ==
--- NOTE | 2022-09-18 16:57 | DI.RAD.S_ITS ---
PROCEDURE: XR CHEST 2V INDICATIONS: CHEST PAIN TECHNIQUE: 2 views of the chest were acquired. COMPARISON: [facility], CR, XR CHEST 1V, 04/19/2021, 9:01. FINDINGS: Surgical changes and devices: None. Lungs and pleura: Lungs are clear. No pleural effusions or pneumothorax. Mediastinum: Mediastinal contours are normal. Heart size is normal. Bones and chest wall: No suspicious bony abnormalities. Soft tissues appear unremarkable. IMPRESSION: No acute cardiopulmonary process demonstrated radiographically. Dictated by: Bossman Hernandez M.D. on 09/19/2022 at 11:39 Approved by: Bossman Hernandez M.D. on 09/19/2022 at 11:39
== END ==
PROVIDERS: PCP Internal Medicine; Referring Provider Internal Medicine; Visit Provider Internal Medicine
DX: R07.9 Chest pain, unspecified (principal)
CPT/HCPCS: 71046

== ENCOUNTER → 2022-10-15 08:40 | Outpatient (CLI) | payer MEDICARE, OTHER, SELFPAY ==
--- NOTE | 2022-10-15 23:46 | DI.NM.S_ITS ---
DATE OF SERVICE: 10/15/2022 PROCEDURE: Exercise treadmill stress and rest myocardial perfusion imaging with gating to assess ejection fraction and regional wall motion. ORDERING PROVIDER: Dr. Debora Morrison. INDICATIONS: The patient is a 72-year-old female with recurrent atypical chest discomfort. CARDIAC STRESS: The patient was able to exercise for 10 minutes on a standard John protocol suggesting exceptional exercise capacity with an MARCO of -69%, achieving 9.9 METS. She had a normal hemodynamic response, achieving a maximum heart rate of 136 BPM (91% of her predicted maximum). She had no chest discomfort or other anginal symptoms. Her resting ECG is normal and there are no significant ST-segment shifts or arrhythmias with stress. At 9 minutes and 22 seconds of exercise at a heart rate of 131 BPM, 24.8 millicuries of technetium-99m Myoview was injected and she was imaged 10 minutes later using a gated SPECT acquisition protocol. Earlier in the day, while at rest, she had been injected with 11.7 millicuries of technetium-99m Myoview and was imaged 20 minutes later, again, using a gated SPECT acquisition protocol. FINDINGS: 1. Raw data: There is fairly good myocardial tracer uptake. There are slight breast shadows and some subdiaphragmatic tracer activity noted. The lluvia/heart ratio is normal at 0.35 with a normal TID ratio of 0.80. 2. Quantitated gated SPECT: Post-stress ejection fraction is estimated at 84% without any focal wall motion abnormality. The resting ejection fraction is estimated at 87% with a normal resting end-diastolic volume of 62 mL. 3. Myocardial perfusion imaging: Post-stress supine images show a fairly normal myocardial perfusion pattern without any concerning perfusion defects, supported by a normal, homogeneous perfusion pattern on the prone images. The resting images show an identical perfusion pattern without any areas of improvement. IMPRESSION: 1. Normal myocardial perfusion study. 2. No evidence for myocardial ischemia or previous myocardial infarction. 3. Normal left ventricular size with normal systolic function and no focal abnormality. 4. Exceptional exercise capacity without angina or ECG evidence of ischemia. Sophia Dixon - JOY/senthil/julian doc#: [id number]/job#: [id number] dd: 10/15/2022 16:53:00 dt: 10/15/2022 23:32:00 DICTATING MD/COPIES TO: Chuckie Kramer MD; Debora Morrison M.D. COPIES MNE: COREY;
== END ==
PROVIDERS: PCP Internal Medicine; Referring Provider Internal Medicine; Visit Provider Internal Medicine
DX: R07.89 Other chest pain (principal)
CPT/HCPCS: 78452; 93017; A9502

== ENCOUNTER → 2023-01-08 13:44 | Outpatient (CLI) | payer MEDICARE, OTHER, SELFPAY ==
--- NOTE | 2023-01-08 | DI.MG.S_ITS ---
BILATERAL DIGITAL SCREENING MAMMOGRAM 3D/2D WITH CAD: 01/08/2023 CLINICAL: Routine screening. Comparison is made to exams dated: 02/23/2021 mammogram, 09/09/2018 mammogram - [facility], and 04/16/2016 mammogram - [facility]. Both breasts are heterogeneously dense, which may obscure small masses (category c / 51-75% glandular tissue). Current study was also evaluated with a Computer Aided Detection (CAD) system. There are benign post operative findings in both breasts. No significant masses, calcifications, or other findings are seen in either breast. There has been no significant interval change. IMPRESSION: BENIGN There is no mammographic evidence of malignancy. A 1 year screening mammogram is recommended. Based on the Tyrer Cuzick model (a risk assessment model) the patient's lifetime risk is 5.0% and her 10 year risk is 3.2%. According to the ACR, ACS, and NCCN guidelines, an annual breast MRI exam along with mammogram is recommended if the patient's lifetime risk is 20% or greater. This exam was interpreted at Station ID: [id number]. NOTE: For mammograms, a report in lay terms will be sent to the patient. Approximately 15% of breast malignancies will not be visualized mammographically. In the management of a palpable breast mass, a negative mammogram must not discourage biopsy of a clinically suspicious lesion. Electronically Signed By: Aly carolina/tresa:01/08/2023 15:44:10 letter sent: Normal Exam ACR BI-RADS Category 2: Benign Finding(s) 3342F
== END ==
PROVIDERS: PCP Internal Medicine; Referring Provider Internal Medicine; Visit Provider Internal Medicine
DX: Z12.31 Encounter for screening mammogram for malignant neoplasm of breast (principal)
CPT/HCPCS: 77063; 77067

== ENCOUNTER 2023-09-16 07:50 | Day surgery (SDC) | payer MEDICARE, OTHER, SELFPAY ==
[2023-09-16] MEDS: LACTATED RINGERS 1,000 ML 120 ML IV (08:40)
[2023-09-16 08:41] VITALS: BP 111/68; PULSE 80; RESP 16; TEMP 36.4; O2SAT 99
--- NOTE | 2023-09-16 09:08 | P.HP_ITS ---
History of Present Illness History of Present Illness Date Patient Seen: 09/16/23 Time Patient Seen: 09:08 Chief complaint: Dx Colonoscopy Narrative: Personal history of colon polyps. Here for colonoscopy. [facility] Medical History Migraines Hyperlipidemia Surgical History History of cataract surgery Social History household members: family Smoking Status: Former smoker alcohol intake: current Meds Home Medications and Allergies Home Medications Medication Instructions Recorded Confirmed Type [prolia] ##0 08/09/16 08/16/18 History calcium carbonate 400 mg calcium 400 mg PO ##0 08/09/16 08/16/18 History (1,000 mg) chewable tablet calcium carbonate 500 mg calcium 1 tab PO ##0 08/09/16 08/16/18 History (1,250 mg) tablet cholecalciferol (vitamin D3) 50 1 tab PO QDAY ##0 08/09/16 08/16/18 History mcg (2,000 unit) tablet (Vitamin D3) pravastatin 10 mg tablet 20 mg PO HS ##0 08/09/16 09/16/23 History sumatriptan succinate 50 mg tablet 50 mg PO PRN PRN Headache ##0 08/09/16 09/16/23 History triamcinolone acetonide 0.5 % 1 walter topical PRN PRN Rash ##0 08/09/16 09/16/23 History topical cream valacyclovir 500 mg tablet 500 mg PO PRN PRN Rash ##0 08/09/16 09/16/23 History venlafaxine 75 mg tablet,extended 75 mg PO QDAY ##0 08/09/16 09/16/23 History release 24 hr escitalopram oxalate 20 mg tablet 20 mg PO DAILY 09/16/23 09/16/23 History Allergies Allergy/AdvReac Type Severity Reaction Status Date / Time amoxicillin Allergy Mild Diarrhea Verified 09/16/23 08:27 ampicillin [AMPICILLIN] Allergy Mild Diarrhea Verified 09/16/23 08:27 lovastatin [LOVASTATIN] Allergy Mild joints ache Verified 09/16/23 08:27 Review of Systems Review of Systems ROS: Yes All systems reviewed with the patient and are negative except as otherwise documented Exam Vital Signs (past 8 hours): - 09/16/23 08:41 Temperature 97.6 F Pulse Rate 80 Respiratory Rate 16 Blood Pressure 111/68 Pulse Oximetry 99 Oxygen Delivery Method Room Air Oxygen Delivery Method Room Air Const General: cooperative HENMT Head: normal to inspection Eyes General: appearance normal, both eyes and all related structures Neck Neck: normal visual inspection Chest Chest: normal inspection of the chest Resp Effort & Inspection: normal respiratory effort Cardio Rate: regular rate GI Inspection: normal to inspection Skin General: no rashes or lesions noted Neuro General: patient alert and patient awake Extrem General: normal to inspection and no pedal edema Psych Appearance: grossly normal Assessment & Plan Assessment & Plan narrative: 73-year-old female with a personal history of adenomatous colon polyps. Colonoscopy is pursued today.
--- NOTE | 2023-09-16 09:09 | PM.PREOP ---
Pre-operative Note Interval Note History & Physical reviewed/Exam performed by Physician: Yes Changes to H&P: No ASA Class (for procedural sedation): II
--- NOTE | 2023-09-16 09:30 | PM.OP.COLON ---
Operative Date/Time/Diagnoses Date of procedure: 09/16/23 Time of procedure: 09:30 Pre-op diagnosis: Personal history of colon polyps Post-op diagnosis: same Procedure & Clinicians Study performed: Colonoscopy Same procedure as scheduled: Yes Indications: Personal history of colon polyps Surgeon: Jorge Maria Procedure Notes SCOAP/Timeout: Done Procedure in detail: After the risks and benefits were explained, written and verbal informed consent was obtained. The patient was brought into the procedure room and placed into the left lateral decubitus position. Please see anesthesia note for sedation details. Digital rectal examination was accomplished. The scope was introduced into the patient and advanced under direct visualization to the cecum as identified by the appendiceal orifice and ileocecal valve. The scope was slowly withdrawn to carefully examine the mucosa for any defects or lesions. Comprehensive imaging was accomplished throughout the rectum including the dentate line. The colon was decompressed, the scope was then removed from the patient who tolerated the procedure well. Pediatric colonoscope Bowel prep adequate Scope withdrawal time: 9 minutes Sedation minutes: 15 Specimen(s): none sent Complications: none Impression: No significant polyps mass lesions identified throughout. The terminal ileum was interrogated and appeared to be within normal limits. There was some mild inflammation approaching the dentate line consistent with changes from intermittent rectal prolapse. Grade 1 internal hemorrhoids were noted. Endoscopic diagnosis 1. Grade 1 internal hemorrhoids 2. Otherwise visually unremarkable colonoscopy Post-procedure Plan for aftercare: Repeat colonoscopy 7 years considering personal history of adenomatous colon polyps. Disposition: PACU
[2023-09-16 09:32] VITALS: BP 101/59; PULSE 75; RESP 16; TEMP 36.2; O2SAT 99
[2023-09-16 09:36] VITALS: BP 105/58; PULSE 78; RESP 16; O2SAT 99
[2023-09-16 09:41] VITALS: BP 144/60; PULSE 74; RESP 16; TEMP 36.6; O2SAT 98
== END 2023-09-16 09:52 | disposition home or self-care (01) ==
PROVIDERS: PCP Internal Medicine; Referring Provider Internal Medicine Gastroenterology; Visit Provider Internal Medicine Gastroenterology
PROC: 0DJD8ZZ Inspection of Lower Intestinal Tract, Via Natural or Artificial Opening Endoscopic (ICD-10-PCS; CPT 45378; principal; 2023-09-16 09:00)
DX: Z12.11 Encounter for screening for malignant neoplasm of colon (principal); Z86.010 Personal history of colon polyps; K64.0 First degree hemorrhoids; E78.5 Hyperlipidemia, unspecified; Z87.891 Personal history of nicotine dependence
CPT/HCPCS: G0105; J2704

== ENCOUNTER → 2024-01-16 08:05 | Outpatient (CLI) | payer MEDICARE, OTHER, SELFPAY ==
--- NOTE | 2024-01-16 08:09 | DI.MG.S_ITS ---
BILATERAL DIGITAL SCREENING MAMMOGRAM 3D/2D WITH CAD: 01/16/2024 CLINICAL: Routine screening. Comparison is made to exams dated: 01/08/2023 mammogram, 02/23/2021 mammogram, and 09/09/2018 mammogram - [facility]. Both breasts are heterogeneously dense, which may obscure small masses (category c / 51-75% glandular tissue). Current study was also evaluated with a Computer Aided Detection (CAD) system. There are benign post operative findings in both breasts. No significant masses, calcifications, or other findings are seen in either breast. There has been no significant interval change. IMPRESSION: BENIGN There is no mammographic evidence of malignancy. A 1 year screening mammogram is recommended. Based on the Tyrer Cuzick model (a risk assessment model) the patient's lifetime risk is 4.7% and her 10 year risk is 3.2%. According to the ACR, ACS, and NCCN guidelines, an annual breast MRI exam along with mammogram is recommended if the patient's lifetime risk is 20% or greater. This exam was interpreted at Station ID: [id number]. NOTE: For mammograms, a report in lay terms will be sent to the patient. Approximately 15% of breast malignancies will not be visualized mammographically. In the management of a palpable breast mass, a negative mammogram must not discourage biopsy of a clinically suspicious lesion. Electronically Signed By: Saniya diaz/tresa:01/16/2024 10:22:10 letter sent: Normal Exam ACR BI-RADS Category 2: Benign Finding(s) [id number]
== END ==
PROVIDERS: PCP Internal Medicine; Referring Provider Internal Medicine; Visit Provider Internal Medicine
DX: Z12.31 Encounter for screening mammogram for malignant neoplasm of breast (principal); R92.333 Mammographic heterogeneous density, bilateral breasts
CPT/HCPCS: 77063; 77067

== ENCOUNTER 2024-03-03 08:54 | Emergency (ER) | payer MEDICARE, OTHER, SELFPAY ==
[2024-03-03] VITALS (14 sets, daily range): BP systolic 107–133; BP diastolic 55–63; PULSE 54–61; RESP 15–22; TEMP 36.4; O2SAT 95–99; BMI 21.9
--- NOTE | 2024-03-03 08:59 | ED.GENADULT ---
HPI - General Adult General Chief complaint: Chest Pain Stated complaint: chest/back pain L side Time Seen by Provider: 03/03/24 08:55 Source: patient, RN notes reviewed and old records reviewed Mode of arrival: Ambulatory Limitations: no limitations History of Present Illness HPI narrative: 74-year-old female with history of dyslipidemia, depression, migraines who presents with complaint of left anterior and posterior chest pain for the past 15 hours. Patient states she has had similar symptoms in the past but for very brief periods of time that then resolved. She states this episode has been persistent without any resolution. She does note a little bit of increased discomfort with movement of her right upper extremity when she brings it across her chest. She does not recall any injury no traumas. She states she has had little bit of patchy rash on her torso but not across her back. Patient states she has had a stress test which her primary care physician ordered in the past year which was negative. She describes it as being in the left upper chest and wrapping around to the left upper thoracic back. Denies any fevers, no cold cough or congestion symptoms. No shortness of breath. No nausea or vomiting. No diaphoresis. No other GI or urinary symptoms. No new swelling in extremities. Patient states prior episodes have never lasted this long. States this episode started while she was at rest. She did go for a walk did not make her symptoms worse. She presents today because it has not resolved. She has not taken anything [id number]. States home medications include an antidepressant, cholesterol medication and PRN migraine medication. No aspirin or other anticoagulants. Prior surgeries include bunionectomy, breast reduction, hysterectomy. No prior cardiac interventions. Has had a cardiac stress test in the past year which she reports it is negative. States she has allergy to ampicillin and adverse reaction to a statin. Tobacco, alcohol or recreational drugs. States no cardiac, pulmonary master family history. No long distance travel. No estrogen. Related Data Home Medications Medication Instructions Recorded Confirmed [prolia] ##0 08/09/16 08/16/18 calcium carbonate 1 tab PO ##0 08/09/16 08/16/18 calcium carbonate 400 mg PO ##0 08/09/16 08/16/18 cholecalciferol (vitamin D3) 50 1 tab PO QDAY ##0 08/09/16 08/16/18 mcg (2,000 unit) tablet (Vitamin D3) pravastatin 10 mg tablet 20 mg PO HS ##0 08/09/16 09/16/23 sumatriptan succinate 50 mg tablet 50 mg PO PRN PRN Headache ##0 08/09/16 09/16/23 triamcinolone acetonide 0.5 % 1 walter topical PRN PRN Rash ##0 08/09/16 09/16/23 topical cream valacyclovir 500 mg tablet 500 mg PO PRN PRN Rash ##0 08/09/16 09/16/23 venlafaxine 75 mg tablet,extended 75 mg PO QDAY ##0 08/09/16 09/16/23 release 24 hr escitalopram oxalate 20 mg tablet 20 mg PO DAILY 09/16/23 09/16/23 Allergies Allergy/AdvReac Type Severity Reaction Status Date / Time amoxicillin Allergy Mild Diarrhea Verified 09/16/23 08:27 ampicillin [AMPICILLIN] Allergy Mild Diarrhea Verified 09/16/23 08:27 lovastatin [LOVASTATIN] Allergy Mild joints ache Verified 09/16/23 08:27 Review of Systems Review of Systems ROS Unobtainable: All systems reviewed & are unremarkable except as noted in HPI and below Patient History Medical History Migraines Hyperlipidemia Surgical History History of cataract surgery Social History household members: family Smoking Status: Former smoker alcohol intake: current Smoking Status: Former smoker alcohol intake frequency: holidays/special occasions only Substance Use Type: does not use Exam Narrative Exam Narrative: GENERAL: Alert and oriented x three, well-appearing female in mild distress. HEENT: Head normocephalic, atraumatic, EOMI, pupils reactive, face symmetric, moist mucous membranes NECK: Supple, full range of motion CARDIOVASCULAR: Regular rate and rhythm without murmurs, rubs or gallops. No JVD. No edema. No obvious rash, erythema or vesicles. RESPIRATORY: Breath sounds equal bilaterally, no wheezes rales or rhonchi. ABDOMEN: Soft, nontender. Normoactive bowel sounds all 4 quadrants. No guarding or rebound, rigidity, no mass : No CVA tenderness EXTREMITIES: Normal range of motion, no clubbing or edema. Neurovascularly intact. No edema bilateral upper extremities. Normal upper extremity strength. NEUROLOGICAL: Cranial nerves II through XII grossly intact. Moving all extremities SKIN: Warm, dry, no petechiae, no rashes or lesions. Initial Vital Signs Initial Vital Signs: Vital Signs Temperature 97.6 F 03/03/24 08:59 Pulse Rate 61 03/03/24 08:59 Respiratory Rate 18 03/03/24 08:59 Blood Pressure 130/58 L 03/03/24 08:59 Pulse Oximetry 97 03/03/24 08:59 Oxygen Delivery Method Room Air 03/03/24 08:59 Scores HEART Score Heart Score history: Slightly Suspicious Heart Score EKG: Normal Heart Score Age: > or = 65 years old Heart Score risk factors: 1-2 risk factors Course Orders Ordered: ED Orders 03/03/24 10:14 US abdomen limited Stat 03/03/24 12:21 MRCP [MR abdomen wo/w con] Stat Discontinued Medications Aspirin (Aspirin 81 Mg Chew Tab) 324 mg PO NOW ONE Stop: 03/03/24 09:02 Last Admin: 03/03/24 09:21 Dose: 324 mg Documented By: DARREN Vital Signs Vital signs: Vital Signs - 8 hr 03/03/24 11:01 03/03/24 11:02 03/03/24 11:02 Pulse Rate 56 L 54 L Respiratory Rate 21 Blood Pressure 118/56 L Pulse Oximetry 98 98 03/03/24 11:30 03/03/24 11:30 03/03/24 12:00 Pulse Rate 58 L Respiratory Rate 20 Blood Pressure 133/63 122/60 Pulse Oximetry 97 03/03/24 12:00 03/03/24 14:28 03/03/24 14:29 Pulse Rate 55 L 57 L 55 L Respiratory Rate 15 Blood Pressure Pulse Oximetry 99 95 97 03/03/24 14:29 03/03/24 14:30 03/03/24 14:31 Pulse Rate 56 L Respiratory Rate Blood Pressure 107/59 L 108/58 L Pulse Oximetry 97 03/03/24 14:31 03/03/24 15:00 03/03/24 15:00 Pulse Rate 58 L 54 L Respiratory Rate Blood Pressure 115/55 L Pulse Oximetry 96 98 Medical Decision Making Lab Data 03/03/24 09:10 03/03/24 09:10 Labs: Lab Results 03/03/24 Range/Units 09:10 WBC 5.4 (4.5-11.0) X10^3/uL RBC 4.54 (4.0-5.2) X10^6/uL Hgb 13.5 (12.0-16.0) g/dL Hct 40.4 (36-46) % MCV 88.9 (80-100) fL MCH 29.7 (26-34) PG MCHC 33.4 (30-36) % RDW 14.1 (11.6-14.8) % Plt Count 162 (150-400) X10^3/uL Neut % (Auto) 49.0 L (50-75) % Lymph % (Auto) 37.4 (25-40) % Hardin % (Auto) 9.0 (3-14) % Eos % (Auto) 3.3 (2-4) % Baso % (Auto) 1.3 (0-2) % Neut # (Auto) 2700 (5886-1199) /uL Lymph # (Auto) 2000 (9156-0800) /uL Hardin # (Auto) 500 (0-900) /uL Eos # (Auto) 200 (0-450) /uL Baso # (Auto) 100 (0-100) /uL PT 10.8 (9.4-12.5) SECONDS INR 0.9 (0.9-1.3) APTT 38 H (25.1-36.5) SECONDS Sodium 138 (137-145) mmol/L Potassium 4.0 (3.4-5.1) mmol/L Chloride 108 H (98-107) mmol/L Carbon Dioxide 27 (22-32) mmol/L BUN 14 (7-17) mg/dL Creatinine 0.57 (0.52-1.04) mg/dL Estimated GFR > 60 (>60) mL/min BUN/Creatinine Ratio 24.6 H (6-22) Glucose 95 (80-110) mg/dL Calcium 8.6 (8.4-10.2) mg/dL Magnesium 2.2 (1.6-2.3) mg/dL Total Bilirubin 0.8 (0.2-1.3) mg/dL AST 24 (14-36) IU/L ALT 16 (<35) IU/L Alkaline Phosphatase 61 (38-126) U/L Total Creatine Kinase 82 (30-135) U/L Troponin I < 0.012 (0.01-0.034) ng/mL NT-Pro-B Natriuret Pep 41 (<125) pg/mL Total Protein 7.3 (6.3-8.2) g/dL Albumin 4.4 (3.5-5.0) g/dL Globulin 2.9 (1.7-4.1) g/dL Albumin/Globulin Ratio 1.5 (1.0-2.8) Lipase 1053 H (23-300) U/L Point of Care Testing Glucose POC 99 Point of care testing: Point of Care Testing Glucose POC 99 Imaging Data US - abdomen: Radiologist's Impression: [address] [address] Ultrasound Report Signed Patient: Sophia Dixon MR#: [id number] : 1950 Acct:[id number] Age/Sex: 74 / F Date of Service: 03/03/24 Loc: ED Accession Number: [id number] Procedure: US abdomen limited Ordering Provider: Veda Lewis D.O. PROCEDURE: US ABDOMEN LIMITED INDICATIONS: left chest pain, elevated lipase TECHNIQUE: Real-time scanning was performed of the abdominal and retroperitoneal organs, with image documentation. COMPARISON: None. FINDINGS: Liver: Liver is normal in size and homogeneous in echotexture. Gallbladder: Gallbladder sludge No wall thickening. No pericholecystic edema. Negative sonographic Anderson's sign. Biliary ducts: Intrahepatic bile ducts are non-dilated. Extrahepatic bile duct caliber measures 4 mm. Normal is 6-7 mm or less in diameter, or 10 mm or less post-cholecystectomy. Pancreas: Pancreatic ductal dilation, measuring 5 mm. Miscellaneous: No free abdominal fluid. IMPRESSION: Pancreatic ductal dilation, measuring 5 mm. In the setting of elevated lipase, obstruction is a consideration. Consider cross-sectional imaging for confirmation. Gallbladder sludge. No common bile duct dilation. Dictated by: Fadi Stevens M.D. on 03/03/2024 at 10:44 Approved by: Fadi Stevens M.D. on 03/03/2024 at 10:46 Chest x-ray: Radiologist's Impression: Sophia Dixon??74??F??1950 ? Allergy/Adv: amoxicillin, ampicillin, lovastatin (More??) Close Abdomen Ultrasound (Signed) Fadi Stevens - 03/03/24 Chest X-Ray (Signed) Robert Santos - 03/03/24 Mammogram Screening (Signed) Saniya Flores - 01/16/24 Mammogram Screening (Signed) Call,Aly - 01/08/23 Radiology Report (Cancelled) Chuckie Kramer - 10/15/22 Myocardial Perfusion Scan Nuc Med (Signed) Chuckie Kramer - 10/15/22 Chest X-Ray (Signed) Bossman Hernandez - 09/18/22 Bone Densitometry 08/21/22 Chest X-Ray (Signed) Eduardo Baltazar - 04/19/21 Mammogram Screening (Signed) Baljit Olivares - 02/23/21 Bone Densitometry 02/23/21 Knee MRI (Signed) Mario Harris - 04/18/[address] (Signed) Caroline Barrios - 11/25/19 Knee X-Ray (Signed) Call,Aly - 09/21/19 Telemetry Strips 09/17/18 Mammogram Screening (Signed) Ricky Walton - 09/09/18 Bone Densitometry (Signed) Caroline Barrios - 09/09/18 Knee X-Ray (Signed) Wyatt Godoy - 01/24/18 [place] [address] XRay Report Signed Patient: Sophia Dixon MR#: [id number] : 1950 Acct:[id number] Age/Sex: 74 / F Date of Service: 03/03/24 Loc: ED Accession Number: [id number] Procedure: XR chest 1V Ordering Provider: Veda Lewis D.O. PROCEDURE: XR CHEST 1V INDICATIONS: chest pain TECHNIQUE: One view of the chest was acquired. COMPARISON: [facility], , XR CHEST 2V, 09/18/2022, 18:02. FINDINGS: Surgical changes and devices: None. Lungs and pleura: Lungs are clear. No pleural effusions or pneumothorax. Mediastinum: Mediastinal contours appear normal. Heart size is normal. Bones and chest wall: No suspicious bony lesions. Overlying soft tissues appear unremarkable. IMPRESSION: No acute cardiopulmonary abnormality is seen. Dictated by: Robert Santos M.D. on 03/03/2024 at 10:12 Approved by: Robert Santos M.D. on 03/03/2024 at 10:14 MRCP: Radiologist's Impression: Close Abdomen MRI (Signed) Saniya Flores - 03/03/24 Abdomen Ultrasound (Signed) Fadi Stevens - 03/03/24 Chest X-Ray (Signed) Robert Santos - 03/03/24 Mammogram Screening (Signed) Saniya Flores - 01/16/24 Mammogram Screening (Signed) Call,Aly - 01/08/23 Radiology Report (Cancelled) Chuckie Kramer - 10/15/22 Myocardial Perfusion Scan Nuc Med (Signed) Chuckie Kramer - 10/15/22 Chest X-Ray (Signed) Bossman Hernandez - 09/18/22 Bone Densitometry 08/21/22 Chest X-Ray (Signed) Eduardo Baltazar - 04/19/21 Mammogram Screening (Signed) Baljit Olivraes - 02/23/21 Bone Densitometry 02/23/21 Knee MRI (Signed) Mario Harris - 04/18/[address] (Signed) Caroline Barrios - 11/25/19 Knee X-Ray (Signed) Aly Rivers - 09/21/19 Telemetry Strips 09/17/18 Mammogram Screening (Signed) Ricky Walton - 09/09/18 Bone Densitometry (Signed) Caroline Barrios - 09/09/18 Knee X-Ray (Signed) Wyatt Godoy - 01/24/18 [place] [address] Magnetic Resonance Report Signed Patient: Sophia Dixon MR#: [id number] : 1950 Acct:[id number] Age/Sex: 74 / F Date of Service: 03/03/24 Loc: ED Accession Number: [id number] Procedure: MR abdomen wo/w con Ordering Provider: Veda Lewis D.O. PROCEDURE: MR ABDOMEN WO/W CON INDICATIONS: pancreatic ductal dilation, elevated lipase TECHNIQUE: Coronal HASTE, axial 2D FLASH in- and [id number]; axial breath-hold T2 FSE with fat saturation from the hepatic dome to the iliac crests. Oblique coronal thin-slice and radial thick slab HASTE through the biliary system. Dynamic axial VIBE during administration of contrast. Post-contrast coronal VIBE or 2D FLASH with fat saturation from the hepatic dome to the iliac crests. Optional diffusion weighted imaging and ADC may be performed. COMPARISON: None. FINDINGS: Image quality: Diagnostic. Gallbladder: No stones or wall thickening. Biliary ducts: No intrahepatic biliary dilatation. The common hepatic duct is normal at 0.6 cm. Common bile duct is normal caliber. It tapers at the ampulla and there are no intrinsic filling defects. Pancreas: The pancreatic duct is dilated to a maximal diameter of 0.5 cm in the head. The contour is smooth and there is slight tapering in the tail. The pancreas appears slightly enlarged, and there may be trace interstitial edema but no significant peripancreatic fluid. There is homogeneous enhancement without mass. OTHER: Lung bases: No pleural or pericardial effusion. Liver: No solid mass. Spleen: Size is within normal limits. Adrenal Glands: No adrenal nodules. Kidneys and Ureters: No hydronephrosis. No solid mass. No complex renal cystic lesion which requires follow up. Stomach and Bowel: Stomach and visible bowel loops are within normal limits. Peritoneum: No abnormal intraperitoneal fluid. No free air. Ventral Wall: No hernia. Abdominal Nodes: No retroperitoneal or mesenteric adenopathy by size criteria. Vessels: Aorta and inferior vena cava are normal in size. Bones: No aggressive osseous abnormality. IMPRESSION: Mild, smooth pancreatic ductal dilatation with slight pancreatic enlargement and questionable interstitial edema. Consider mild or early pancreatitis. No biliary dilatation or cholelithiasis. Dictated by: Saniya Flores M.D. on 03/03/2024 at 15:05 Approved by: Saniya Flores M.D. on 03/03/2024 at 15:13 ECG Data Attestation: I personally reviewed and interpreted this ECG as follows: Prior ECG tracings: available for review Interpretation: Sinus bradycardia rate of 57 TX 152 QRS is 66 QTC of 422. No acute ST elevation or depression noted. Patient has prior from 04/19/2021 appears similar. MDM Narrative Medical decision making narrative: 74-year-old female risk factors include dyslipidemia who presents with complaint of left-sided chest pain were wrapped around to the thoracic area in somewhat worse with movement of her upper extremity. Patient states has been persistent for over 12 hours with no resolution. No rash or skin changes consistent with shingles. Has had brief episodes in the past and had a stress test which he reports as negative in the past year. Labs normal CBC with low neutrophils, INR 0.9, chemistries chloride 108 otherwise normal renal function electrolytes patient's troponins less than 0.012 being greater than 12 hours without EKG changes do not feel this needs to be repeated. Patient's lipase is elevated at 1053. We will order abdominal ultrasound EKG shows no acute ST elevation depression, no dynamic changes from prior EKG from 2020 Chest x-ray, on prelim shows no acute change. Formal report shows no acute change. Abdominal ultrasound shows pancreas ductal dilation measuring 5 mm in the setting of elevated lipase obstructions consider considered CT imaging for confirmation gallbladder sludge no common bile duct dilation. Patient case discussed with Dr. Jnenings, would prefer MR over CT to evaluate for pancreatic ductal dilation. He would recommend MR preferentially. Spoke with patient, she is comfortable with plan, she does not have any epigastric pain states it is really on the left side of her chest but towards her back. Discussed findings thus far she was agreeable with plan for MR. MRCP shows no obstructive process findings seem most consistent with mild early pancreatitis. Discussed with patient findings, she states rare alcohol use none recently. No scorpion bite, she states she does have some dyslipidemia but states she has been told her labs which are checked fairly regularly has been appropriate. Plan for patient to follow up outpatient, repeat lipase in the next several days if her symptoms have not totally resolved, clear liquid diet and advance as tolerated. Discussed return precautions. Patient feels comfortable with this plan she has not had any vomiting or difficulty with eating or drinking. She states pain is pretty well controlled defers anything stronger than Tylenol or ibuprofen for pain management. Discharge Plan Departure Patient Disposition: Home Clinical Impression: Pancreatitis Instructions: Acute Pancreatitis Activity Restrictions/Additional Instructions: Follow-up for recheck in the next 48 hours with your physician if your symptoms have not completely resolved you should have recheck of your lipase are pancreatic enzyme. Your lipase today was 1053, and your MRCP showed some mild pancreatic ductal dilation but no obstructive process, no mass there was some mild pancreatic edema most consistent with mild or early pancreatitis. Start with a clear or soft diet, if symptoms have resolved you can start to advance your diet. You can take Tylenol up to a 1000 mg every 6 hours as needed for pain and/or ibuprofen up to 600 mg every 6 hours as needed for pain. Please return for new or worsening abdominal or chest pain, vomiting, fevers, black or bloody stools or other new or concerning changes. Prescriptions: No Action pravastatin 10 MG tablet 20 mg PO HS Qty: 0 calcium carbonate 500 MG tablet 1 tab PO Qty: 0 [prolia] Qty: 0 triamcinolone acetonide 0.5 % cream 1 walter Topical PRN PRN (Reason: Rash) Qty: 0 sumatriptan succinate 50 MG tablet 50 mg PO PRN PRN (Reason: Headache) Qty: 0 valacyclovir 500 MG tablet 500 mg PO PRN PRN (Reason: Rash) Qty: 0 venlafaxine 75 MG tablet extended release 24hr 75 mg PO QDAY Qty: 0 calcium carbonate 400 MG tablet,chewable 400 mg PO Qty: 0 cholecalciferol (vitamin D3) [Vitamin D3] 2,000 UNIT tablet 1 tab PO QDAY Qty: 0 escitalopram oxalate 20 mg tablet 20 mg PO DAILY Referrals: Debora Morrison MD [Primary Care Provider] - Stand Alone Forms: Patient Portal/API
--- NOTE | 2024-03-03 09:04 | EKG_ITS ---
[address] [address] [address] [address] Test Date: 2024-03-03 Pat Name: Sophia Dixon Department: Room: Gender: Female [employer]: DARREN : 1950 Requested By: Order Number: [id number] Reading MD: Weston Turner MD Measurements Intervals [place] Rate: 57 P: 20 [place]: 152 QRS: 9 QRSD: 66 T: 24 QT: 434 QTc: 422 Interpretive Statements Sinus bradycardia Low voltage QRS Electronically Signed On 03-03-2024 9:28:23 PDT by Weston Turner MD
[2024-03-03 09:17] LABS: Add Manual Diff / Slide Review NO; Basophils Absolute Auto 100 /uL (0-100); Basophils Percent Auto 1.3 % (0-2); Eosinophils Absolute Auto 200 /uL (0-450); Eosinophils Percent Auto 3.3 % (2-4); Hematocrit 40.4 % (36-46); Hemoglobin 13.5 g/dL (12.0-16.0); Lymphocytes Absolute Auto 2000 /uL (1100-4500); Lymphocytes Percent Auto 37.4 % (25-40); Mean Corpuscular HGB Conc 33.4 % (30-36); Mean Corpuscular Hemoglobin 29.7 PG (26-34); Mean Corpuscular Volume 88.9 fL (80-100); Monocytes Absolute Auto 500 /uL (0-900); Neutrophils Absolute Auto 2700 /uL (1500-7000); Platelet Count 162 X10^3/uL (150-400); Red Blood Cell Count 4.54 X10^6/uL (4.0-5.2); Red Cell Distribution Width 14.1 % (11.6-14.8); White Blood Cell Count 5.4 X10^3/uL (4.5-11.0)
[2024-03-03] MEDS: ASPIRIN 81 MG CHEW TAB 324 MG PO (09:21)
[2024-03-03 09:25] LABS: INR 0.9 (0.9-1.3); Prothrombin Time 10.8 SECONDS (9.4-12.5)
[2024-03-03 09:27] LABS: PTT Partial Thromboplastin Tim 38 SECONDS (25.1-36.5)
[2024-03-03 09:28] LABS: Alanine Aminotransferase 16 IU/L (<35); Albumin 4.4 g/dL (3.5-5.0); Albumin Globulin Ratio 1.5 (1.0-2.8); Alkaline Phosphatase 61 U/L (38-126); Aspartate Aminotransferase 24 IU/L (14-36); BUN Creatinine Ratio 24.6 (6-22); Bilirubin Total 0.8 mg/dL (0.2-1.3); Blood Urea Nitrogen 14 mg/dL (7-17); Calcium 8.6 mg/dL (8.4-10.2); Carbon Dioxide 27 mmol/L (22-32); Chloride 108 mmol/L (98-107); Creatine Kinase 82 U/L (30-135); Estimated Glomerular Filt Rate > 60 mL/min (>60); Globulin 2.9 g/dL (1.7-4.1); Glucose 95 mg/dL (80-110); HEMOLYSIS < 15 (0-50); Lipase 1053 U/L (23-300); Magnesium 2.2 mg/dL (1.6-2.3); Sodium 138 mmol/L (137-145); Total Protein 7.3 g/dL (6.3-8.2)
[2024-03-03 09:39] LABS: NT-proBNP (BNP-Adult 18+) 41 pg/mL (<125); Troponin I < 0.012 ng/mL (0.01-0.034)
--- NOTE | 2024-03-03 10:14 | DI.US.S_ITS ---
PROCEDURE: US ABDOMEN LIMITED INDICATIONS: left chest pain, elevated lipase TECHNIQUE: Real-time scanning was performed of the abdominal and retroperitoneal organs, with image documentation. COMPARISON: None. FINDINGS: Liver: Liver is normal in size and homogeneous in echotexture. Gallbladder: Gallbladder sludge No wall thickening. No pericholecystic edema. Negative sonographic Anderson's sign. Biliary ducts: Intrahepatic bile ducts are non-dilated. Extrahepatic bile duct caliber measures 4 mm. Normal is 6-7 mm or less in diameter, or 10 mm or less post-cholecystectomy. Pancreas: Pancreatic ductal dilation, measuring 5 mm. Miscellaneous: No free abdominal fluid. IMPRESSION: Pancreatic ductal dilation, measuring 5 mm. In the setting of elevated lipase, obstruction is a consideration. Consider cross-sectional imaging for confirmation. Gallbladder sludge. No common bile duct dilation. Dictated by: Fadi Stevens M.D. on 03/03/2024 at 10:44 Approved by: Fadi Stevens M.D. on 03/03/2024 at 10:46
--- NOTE | 2024-03-03 12:21 | DI.MRI.S_ITS ---
PROCEDURE: MR ABDOMEN WO/W CON INDICATIONS: pancreatic ductal dilation, elevated lipase TECHNIQUE: Coronal HASTE, axial 2D FLASH in- and [id number]; axial breath-hold T2 FSE with fat saturation from the hepatic dome to the iliac crests. Oblique coronal thin-slice and radial thick slab HASTE through the biliary system. Dynamic axial VIBE during administration of contrast. Post-contrast coronal VIBE or 2D FLASH with fat saturation from the hepatic dome to the iliac crests. Optional diffusion weighted imaging and ADC may be performed. COMPARISON: None. FINDINGS: Image quality: Diagnostic. Gallbladder: No stones or wall thickening. Biliary ducts: No intrahepatic biliary dilatation. The common hepatic duct is normal at 0.6 cm. Common bile duct is normal caliber. It tapers at the ampulla and there are no intrinsic filling defects. Pancreas: The pancreatic duct is dilated to a maximal diameter of 0.5 cm in the head. The contour is smooth and there is slight tapering in the tail. The pancreas appears slightly enlarged, and there may be trace interstitial edema but no significant peripancreatic fluid. There is homogeneous enhancement without mass. OTHER: Lung bases: No pleural or pericardial effusion. Liver: No solid mass. Spleen: Size is within normal limits. Adrenal Glands: No adrenal nodules. Kidneys and Ureters: No hydronephrosis. No solid mass. No complex renal cystic lesion which requires follow up. Stomach and Bowel: Stomach and visible bowel loops are within normal limits. Peritoneum: No abnormal intraperitoneal fluid. No free air. Ventral Wall: No hernia. Abdominal Nodes: No retroperitoneal or mesenteric adenopathy by size criteria. Vessels: Aorta and inferior vena cava are normal in size. Bones: No aggressive osseous abnormality. IMPRESSION: Mild, smooth pancreatic ductal dilatation with slight pancreatic enlargement and questionable interstitial edema. Consider mild or early pancreatitis. No biliary dilatation or cholelithiasis. Dictated by: Saniya Flores M.D. on 03/03/2024 at 15:05 Approved by: Saniya Flores M.D. on 03/03/2024 at 15:13
== END 2024-03-03 15:39 | disposition home or self-care (01) ==
PROVIDERS: Emergency Provider Emergency Medicine; PCP Internal Medicine
DX: K85.90 Acute pancreatitis without necrosis or infection, unspecified (principal); R79.89 Other specified abnormal findings of blood chemistry; R07.9 Chest pain, unspecified
CPT/HCPCS: 36415; 71045; 74183; 76705; 80053; 82550; 82962; 83690; 83735; 83880; 84484; 85025; 85610; 85730; 93005; 99284; A9579

== ENCOUNTER → 2024-03-11 10:12 | Outpatient (CLI) | payer MEDICARE, OTHER, SELFPAY ==
--- NOTE | 2024-03-11 | DI.CT.S_ITS ---
PROCEDURE: CT ABDOMEN W CON INDICATIONS: Idiopathic acute pancreatitis without necrosis or infection TECHNIQUE: Oral contrast was given in this patient. After the administration of intravenous contrast, 5 mm thick sections acquired from the diaphragms to the iliac crests. 5 mm thick coronal and sagittal reformats were acquired. For radiation dose reduction, the following was used: automated exposure control, adjustment of mA and/or kV according to patient size. COMPARISON: [facility], , MR ABDOMEN WO/W CON, 03/03/2024, 12:55. FINDINGS: Image quality: Diagnostic. Lower Chest: A small hiatal hernia is incidentally noted. ABDOMEN: Liver: No solid mass. Gallbladder: No radiopaque gallstones or wall thickening. Biliary ducts: No biliary dilation. Pancreas: In this patient with this given history, scrutiny is given to the pancreas. No significant peripancreatic inflammatory change can be seen. The pancreas enhances normally, without masses or necrotic regions seen. The pancreatic duct is mildly prominent within the uncinate process, measuring 4-5 mm. Pancreas overall is prominent in size. Spleen: Size is within normal limits. Adrenal Glands: No adrenal nodules. Kidneys and Ureters: No hydronephrosis. No solid mass. No complex renal cystic lesion which requires follow up. Stomach and Bowel: Normal colonic caliber, without significant wall thickening. Peritoneum: No abnormal intraperitoneal fluid. No free air. Ventral Wall: No hernia. Abdominal Nodes: No retroperitoneal or mesenteric adenopathy by size criteria. Vessels: Aorta and inferior vena cava are normal in size. Bones: No aggressive osseous abnormality. Age-appropriate bony degenerative changes are seen. IMPRESSION: No significant inflammatory change can be seen of the pancreas. Mild pancreatic ductal dilatation again seen. Additional findings: Small hiatal hernia Dictated by: Ty Watts M.D. on 03/11/2024 at 16:04 Approved by: Ty Watts M.D. on 03/11/2024 at 16:07
== END ==
PROVIDERS: PCP Internal Medicine; Referring Provider Internal Medicine; Visit Provider Internal Medicine
DX: K85.00 Idiopathic acute pancreatitis without necrosis or infection (principal); K86.89 Other specified diseases of pancreas; K44.9 Diaphragmatic hernia without obstruction or gangrene
CPT/HCPCS: 74160; Q9967

== ENCOUNTER → 2024-05-26 16:59 | Outpatient (CLI) | payer MEDICARE, OTHER, SELFPAY ==
--- NOTE | 2024-05-26 17:01 | DI.MRI.S_ITS ---
PROCEDURE: MR KNEE LT WO CON INDICATIONS: LEFT KNEE PAIN TECHNIQUE: Noncontrast sagittal PD fast spin echo and T2 fast spin echo with fat saturation, sagittal 3-D FLASH with fat saturation; coronal T1 spin echo and PD fast spin echo with fat saturation, and axial PD fast spin echo with fat saturation through the knee. COMPARISON: [facility], CR, XR KNEE 4+ VIEWS LEFT, 05/21/2024, 13:04. [facility], MR, MR KNEE RT WO CON, 04/18/2020, 15:36. FINDINGS: Image quality: Excellent. Bones: There is a 0.7 cm T2 hyperintense lesion at the distal-lateral femoral condyle (/; 03/08), which may represent a small enchondroma versus an intraosseous ganglion cyst. Mild subchondral marrow edema is present at the central periphery of the medial tibial plateau (/). A small intraosseous ganglion cyst is present at the anterior medial tibial plateau (/). The bone marrow signal is otherwise normal. There is no acute fracture or dislocation. Joints: There is no significant knee joint effusion. There is mild knee osteoarthritis. Jensen's cyst: None. Menisci: There is a complex tear of the body and posterior horn of the medial meniscus with primary horizontal component that extends into the posterior root attachment (06/07-23). There is no significant meniscal body extrusion into the medial gutter at this time. The lateral meniscus and its posterior root attachment are normal. Cruciate ligaments: The anterior cruciate ligament is normal. The posterior cruciate ligament is normal. Collateral ligaments: The medial collateral ligament complex is mildly thickened with low signal and periligamentous edema (10/20). The lateral collateral ligament complex is normal. Popliteus Muscle/Tendon: The popliteus muscle and tendon are normal. Extensor mechanism: The quadriceps tendon is normal. The patellar tendon is normal. The medial and lateral patellar retinacular attachments are normal. Articular cartilage: Mild surface fibrillation is present at the lateral patellofemoral compartment (5/11). Deep, partial-thickness chondral loss is present at the weight-bearing central and posterior medial compartment subjacent to the sites of the meniscal tearing (/). Other: Minimal infrapatellar subcutaneous edema. IMPRESSION: 1. Complex tear of the body and posterior horn of the medial meniscus with extension to the root attachment site, with associated articular cartilage defects and reactive marrow edema at the medial tibial plateau. No significant meniscal body extrusion at this time. 2. Mild MCL sprain. 3. Mild knee osteoarthritis. Dictated by: Gui Jaimes M.D. on 05/27/2024 at 10:11 Approved by: Gui Jaimes M.D. on 05/27/2024 at 10:27
== END ==
PROVIDERS: PCP Internal Medicine; Referring Provider Orthopaedic Surgery Adult Reconstructive Orthopaedic Surgery; Visit Provider Orthopaedic Surgery Adult Reconstructive Orthopaedic Surgery
DX: S83.232A Complex tear of medial meniscus, current injury, left knee, initial encounter (principal); S83.412A Sprain of medial collateral ligament of left knee, initial encounter; M17.12 Unilateral primary osteoarthritis, left knee; M25.562 Pain in left knee
CPT/HCPCS: 73721

== ENCOUNTER → 2024-08-24 12:31 | Outpatient (CLI) | payer MEDICARE, OTHER, SELFPAY ==
--- NOTE | 2024-08-24 12:33 | DI.RAD.S_ITS ---
PROCEDURE: XR DEXA AXIAL SKELETON INDICATIONS: Age-related osteoporosis without current pathologi COMPARISON: [facility], , XR DEXA AXIAL SKELETON, 08/21/2022, 15:11. [facility], CR, XR DEXA AXIAL SKELETON, 02/23/2021, 15:38. FINDINGS: Lumbar Spine: Bone mineral density 0.775 g/cm2, T score -2.5, previously -2.2. Left Hip: Bone mineral density 0.769 g/cm2, T score -1.4, unchanged. Left Femoral Neck: Bone mineral density 0.573 g/cm2, T score -2.5, previously -2.6. Fracture Risk Calculation (when applicable): Not reported due to osteoporosis therapy. (T score greater or equal to -1.0 to: NORMAL) (T score from -1.1 to -2.4: OSTEOPENIA) (T score less than or equal to -2.5: OSTEOPOROSIS) IMPRESSION: Osteoporosis. Follow-up guidelines as follows: Osteoporosis: Consider a repeat DEXA and Vertebral Fracture Assessment (VFA) exam in 2 years or sooner if medically necessary, to reassess this patient's status. Osteopenia: Consider a repeat DEXA in 2-3 years to reassess this patient's status, or if there is a new clinical indication. Normal: Consider a repeat DEXA in 5 years or sooner, or if there is a new clinical indication. All treatment decisions require clinical judgment and consideration of individual patient factors, including patient preferences, comorbidities, previous drug use, risk factors not captured in the FRAX model (e.g., frailty, falls, vitamin D deficiency, increased bone turnover, interval significant decline in bone density ) and possible under- or over-estimation of fracture risk by FRAX. In addition, the NOF Guide recommends that FDA-approved medical therapies be considered in postmenopausal women and men age >= 50 years with a: * Hip or vertebral (clinical or morphometric) fracture * T-score of <=-2.5 at the spine or hip * Ten-year fracture probability by FRAX of >= 3% for hip fracture or >=20% for major osteoporotic fracture. People with diagnosed cases of osteoporosis or at high risk for fracture should have regular bone mineral density tests. For patients eligible for Medicare, routine testing is allowed once every 2 years. The testing frequency can be increased to one year for patients who have rapidly progressing disease, those who are receiving or discontinuing medical therapy to restore bone mass, or have additional risk factors. Dictated by: Fadi Stevens M.D. on 08/24/2024 at 16:15 Approved by: Fadi Stevens M.D. on 08/24/2024 at 16:16
== END ==
PROVIDERS: PCP Internal Medicine; Referring Provider Internal Medicine; Visit Provider Internal Medicine
DX: M81.0 Age-related osteoporosis without current pathological fracture (principal)
CPT/HCPCS: 77080

== ENCOUNTER → 2025-01-21 11:13 | Outpatient (CLI) | payer MEDICARE, OTHER, SELFPAY ==
--- NOTE | 2025-01-21 11:15 | DI.MG.S_ITS ---
MM screening mammo BI: 01/21/2025. BI-RADS: 1 CLINICAL: 75-year old female for bilateral screening mammogram. Tyrer-Cuzick lifetime risk of 1.3%. No personal or first-degree family history of breast cancer. The patient is status-post reduction mammoplasty. PRIOR EXAMS 01/16/2024, 01/08/2023, 02/23/2021, 09/09/2018. MAMMOGRAPHY TECHNIQUE: 2D and 3D (tomosynthesis) digital mammographic views obtained, with additional images as needed for full coverage. Current study was also evaluated with a Computer Aided Detection (CAD) system. DENSITY C. The breasts are heterogeneously dense, which may obscure small masses. MAMMOGRAPHY FINDINGS Bilateral: No suspicious mass, asymmetry, microcalcification, or other abnormality seen. IMPRESSION: * No evidence of malignancy. RECOMMENDATIONS Bilateral * Annual screening mammography. OVERALL ASSESSMENT CATEGORY BI-RADS-1: Negative. The [employer] [place] [employer] recommends annual screening mammography beginning at age 40 for women with average risk of breast cancer. ELECTRONICALLY SIGNED: Niru Velez M.D. on 01/24/2025 at 01:35:58 PM PT Interpreting Station ID: [id number]
== END ==
PROVIDERS: PCP Internal Medicine; Referring Provider Internal Medicine; Visit Provider Internal Medicine
DX: Z12.31 Encounter for screening mammogram for malignant neoplasm of breast (principal); R92.333 Mammographic heterogeneous density, bilateral breasts
CPT/HCPCS: 77063; 77067